=== PATIENT | female | born 1950 | race Caucasian/White ===

== ENCOUNTER 2022-12-24 10:14 | Outpatient (AMB) | payer MEDICARE, BC, SELFPAY ==
[2022-12-24 10:26] VITALS: BP 116/60; PULSE 62; RESP 16; O2SAT 99; BMI 23.0
--- NOTE | 2022-12-24 10:26 | A.OFFVIS_ITS ---
Intake Vital Signs 12/24/22 10:26 Height 5 ft 7 in Weight 147 lb 0.773 oz BMI 23.0 BP 116/60 Blood Pressure Location Lt brachial Position Sitting Respiration 16 Pulse 62 Pulse Source Pulse Oximeter Temp Source Tympanic Pulse Oximetry (%) 99 Oxygen Delivery Method Room Air Intake Visit Reasons: SLE Allergies carbamazepine [From Tegretol] Allergy (Unknown, Unverified 12/24/22 10:29) Unknown phenytoin [From Dilantin] Allergy (Unknown, Unverified 12/24/22 10:29) Unknown Medication List - Last Reconciled 12/24/22 by Esther Chicas RN hydroxychloroquine 200 mg PO DAILY metoprolol succinate ER 25 mg PO DAILY multivitamin 1 tab PO DAILY warfarin 5 mg PO DAILY HPI HPI Comments History of Present Illness Details The patient presents for evaluation of her SLE, antiphospholipid syndrome, and osteoarthritis. I had last seen her about 3 years ago. She has longstanding SLE but has had mostly inactive disease in the last 2 decades. Since then she has seen Dr. Mcdowell a few times. His notes and the cardiology notes are reviewed. She remains on hydroxychloroquine 200 mg daily and warfarin. Occasionally she takes acetaminophen at night. She has some hand deformities but they are not really all that painful. 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 For the past 2 years a so she has been bothered by low back pain. This comes on with prolonged standing and radiates to the anterior thigh region when she walks. She has not seen any swollen joints. She did have some right knee pain in the past but that resolved after a corticosteroid injection. She was hospitalized with some PVCs. Cardiac workup included a stress test and echocardiogram. The echocardiogram showed some mitral regurgitation and a stress test was negative for ischemia. She was recommended to take medication for osteoporosis with alendronate but it caused esophagitis and she only took it about 3 weeks. Further recommendation was given for the use of zoledronic acid but she was worried about side effects so never had it done. [facility] Medical History History of DVT (deep vein thrombosis) Osteoarthritis Osteoporosis SLE (systemic lupus erythematosus related syndrome) Surgical History Hx of cataract extraction S/P foot surgery, left Family History Mother Diabetes Myocardial infarction Father Myocardial infarction Colon cancer Brother Lupus History of Crohn's disease Kidney failure, acute Social History Alcohol intake: current Alcohol intake frequency: holidays/special occasions only Alcohol type: wine Patient Tobacco Use Status: Current someday Tobacco user Review of Systems Const Details: Negative for appetite change, weight change, fever, chills, malaise and fatigue Eyes Details: Negative for vision change, dry eyes,headaches and dizziness ENT Details: Negative for hearing change, tinnitus, oral ulcer, nose bleeds and oral dryness. Card Details: Negative chest pain, edema and syncope Resp Details: Negative for SOB, cough and wheezing GI Details: Negative indigestion/heartburn, nausea, abdominal pain, bowel changes, diarrhea, constipation and bloody stool. Skin/Breast Details: Negative for itching, rash, hives, Raynaud's symptoms, sun sensitivity, and skin cancer Neuro Details: Negative for epilepsy, palsy, stroke, changes in speech, tingling and weakness Dion/Lymph Details: Negative for excessive bruising or bleeding. Physical Exam Vital Signs: Last Vital Signs Pulse 62 12/24/22 10:26 Resp 16 12/24/22 10:26 BP 116/60 12/24/22 10:26 Pulse Ox 99 12/24/22 10:26 Oxygen Delivery Method Room Air 12/24/22 10:26 BMI result Body Mass Index 23.0 APPEARANCE: Patient in no acute distress EYES no redness, pupils equal and reactive to light, eyelids normal EARS: External ear normal, canal clear and tympanic membrane normal. NOSE/SINUS: Airflow through both nares, no nasal discharge, no bleeding THROAT: Oral mucosa moist, no ulcerations NECK: No thyromegaly or masses, no adenopathy, trachea midline. HEART: Regulrar rhythm, S1-S2 heard. Very faint early systolic systolic murmur heard at the apex. No rubs or gallops. LUNG: Clear to percussion and auscultation ABD: Normal bowel sounds, no organomegaly, masses or tenderness. EXTREMITIES: There is some hyperpigmented skin around the medial and anterior aspect of the right lower leg. That leg has no palpable pulse in the dorsalis pedis area. The foot is warm and well perfused however. The legs have no edema and no calf tenderness. The other extremities have normal peripheral pulses. NEURO: Oriented and alert x3. No focal weakness. Reflexes symmetric. Gait normal. SKIN: No active skin lesions. Some hyperpigmented areas of skin on the lower leg suggesting old skin disease. JOINT EXAM:.?? Cervical Spine:.? Full range of motion without pain; no tenderness. Thoracic Spine:.? No scoliosis.? No tenderness on palpation. Lumbar Spine:.? Alignment normal.? Lumbar pain with extremes of range of motion. No tenderness. Chest Wall:.? No tenderness, swelling, increased warmth or erythema. Hands: There is mild bony enlargement with tenderness at the base of the thumbs. There is some swan neck deformity at all the PIP is but none of them are tender. There is no soft tissue swelling. There is some slight bony enlargement without tenderness PIP joints. There is slight thenar atrophy but no sensory loss. Wrists:.? Normal pain-free range of motion without tenderness, swelling, increased warmth or erythema. Elbows:. Normal pain-free range of motion without tenderness, swelling, increased warmth or erythema. Shoulders:.?? Full range of motion without pain. No tenderness, weakness, swelling, increased warmth or erythema. Hips:.? Full range of motion with some mild lumbar pain with extremes of range of motion. No groin pain with range of motion. Hip bursa:.? No tenderness. Knees:.?? Normal pain-free range of motion with mild patellofemoral crepitus but no effusion, tenderness, swelling, increased warmth or erythema.? Ankles:.? Right: Mild pain with extremes of range of motion with some minimal medial tenderness. No swelling. Left: Normal pain-free range of motion with some slight valgus deformity but no the tenderness, swelling, increased warmth or erythema. Feet:.? She has pes planus deformity. There is some mild 1st MTP bony enlargement without tenderness. This is enlargement more prominent on the left. There is 5th MTP which is more prominent on the left. It is not tender. The 2nd and 3rd toes have some cock-up deformities. No tenderness. Tender points:.? No tenderness to digital palpation at the occiput, trapezius, second rib, lateral epicondyle, knees, greater trochanter and gluteal area bila terally. ? Results Reviewed Results Reviewed: [facility] MED[facility] Imaging Result Report Patient: Annabelle Harris Date of Service: 04/22/20 ? ? Patient Gender: Female Ordering Provider: Latrell Talbert : 1950 ? ? ? Final DXA BONE DENSITY STUDY 1+ SITS AXIAL SKEL Exam Date: 04/22/2020 11:45 AM Ordering Diagnosis: Osteoporosis, unspecified osteoporosis type, unspecified pathological fracture presence ? BONE DENSITY SCAN (DEXA): ? FINDINGS: ? Lumbar Spine T-score is -2.4. (SD relative to 20-29 y/o adult) Z-score is -0.4. (SD relative to age matched peers) This is considered osteopenia by WHO criteria. ? Left Hip T-score is -3.0. Z-score is -1.2. This is considered osteoporosis by WHO criteria. ? Comparison exam(s): As recent as 02/21/2015 and as far back as 01/23/2004. No statistically significant change in lumbar spine and left hip bone mineral density compared wi th the previous and baseline exams. ? IMPRESSION IMPRESSION: ? Osteoporosis by WHO criteria. ? FRAX scores not able to be calculated. ? The [facility] Department of Internal Medicine recommends using National Osteoporosis Foundation (NOF) guidelines in treatment decisions related to osteoporosis. NOF guidelines suggest considering treatment for postmenopausal women and men aged 50 or older presenting with the following: ? History of hip or vertebral fracture. T-score = -2.5 (DXA) at the femoral neck, total hip, or spine, after appropriate evaluation to exclude secondary causes. Low bone mass (T-score between -1.0 and -2.5 at the femoral neck or spine) AND a 10-year probability of a hip fracture = 3% OR a 10-year probability of a major osteoporosis-related fracture = 20% based on the [place]-adapted WHO algorithm ? Please note that all treatment decisions require clinical judgment and consideration of individual patient factors, including patient preferences, co-morbidities, previous drug use, risk factors not captured in the FRAX model (e.g., frailty, falls, vitamin D deficiency, increased bone turnover, interval significant decline in bone density) and possi ble under- or over-estimation of fracture risk by FRAX. ? Optional alternative screening schedule based on jose Morris., [facility] June 25, 2011 for patients with osteopenia (based on hip BMD T-score) is as follows: * advanced osteopenia (T scores -2.00 to -2.49), BMD testing every year * moderate osteopenia (T scores -1.50 to -1.99), BMD testing every 5 years mild osteopenia or normal BMD (T scores -1.50 and higher), BMD testing every 15 years ? ? ? Reading Radiologist: Electronically signed by: Annamaria Douglas MD on Assessment & Plan Assessment & Plan (1) Lupus anticoagulant disorder: Comment: claudication in right calf due to thrombosis. 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 She also has some osteoarthritis in a few joints in the hands. She had an arterial occlusion years ago in the right leg. Since then she has been on anticoagulants for lupus anticoagulant syndrome without any further occlusive disease. I think she should stay on the Coumadin. The most problematic area right now seems to be low back pain with radiation to the legs consistent with lumbar osteoarthritis. The hip motion seems relatively well- preserved so I do not think hip joint OA is the primary process. We will check x-rays of the LS spine. She might benefit from physical therapy or referral to pain management. I will check some markers of lupus activity, inflammatory activity organ function and CBC. I would agree that she needs to be treated for osteoporosis. She again really is reluctant because of the worry about side effects. I gave her some written information on zoledronic acid to review. She will get back to me if she wants to proceed with that treatment. Otherwise a return visit at 3 months seems reasonable. Review of records from the hospital and Rheumatology office, today's exam, and discussion of treatment options took 54 minutes.. Orders: Orders XR lumbar spine 2-3V Today M54.50 - Low back pain, unspecified Comprehensive Met. Panel Today M32.9 - Systemic lupus erythematosus, unspecified C Reactive Protein Today M32.9 - Systemic lupus erythematosus, unspecified Protein Creatinine Ratio, Ur Today M32.9 - Systemic lupus erythematosus, unspecified Complete Blood Count Auto Diff Today M32.9 - Systemic lupus erythematosus, unspecified Erythrocyte Sedimentation Rate Today M32.9 - Systemic lupus erythematosus, unspecified Complement C3 Today M32.9 - Systemic lupus erythematosus, unspecified Complement C4 Today M32.9 - Systemic lupus erythematosus, unspecified Anti DNA DS Antibody Today M32.9 - Systemic lupus erythematosus, unspecified Coding Level of Care Code New Pt Level 4 (95070) Diagnoses Lupus anticoagulant disorder D68.62 Osteoporosis M81.0 Long-term use of hydroxychloroquine Z79.899 Low back pain M54.50 SLE (systemic lupus erythematosus related syndrome) M32.9
== END 2022-12-24 11:20 | disposition home or self-care (01) ==
PROVIDERS: PCP Internal Medicine; Visit Provider Internal Medicine Rheumatology
DX: D68.62 Lupus anticoagulant syndrome (principal); M81.0 Age-related osteoporosis without current pathological fracture; Z79.899 Other long term (current) drug therapy; M54.50 Low back pain, unspecified; M32.9 Systemic lupus erythematosus, unspecified
CPT/HCPCS: 99204

== ENCOUNTER 2022-12-24 10:14 | Outpatient (REF) | payer MEDICARE, BC, SELFPAY ==
--- NOTE | ~2022-12-24 | XR_ITS ---
EXAMINATION: XR LUMBOSACRAL SPINE CLINICAL INFORMATION: Low back pain. COMPARISON: None available. TECHNIQUE: Three views of the lumbosacral spine. FINDINGS: There are 5 nonrib-bearing lumbar vertebra. There is osteopenia of visualized bones. No acute fracture, spondylolisthesis, or spondylolysis is identified. There is significant narrowing of the L5-S1 disc space with marginal sclerosis and spurring. There is facet arthropathy present most prominent right side L3-L4. No destructive bony lesion is appreciated. There is calcification of a nonaneurysmal abdominal aorta. XR/XR lumbar spine 2-3V IMPRESSION: Diffuse osteopenia. No acute fracture, spondylolisthesis, or spondylolysis. Lumbar spondylosis most prominent at the L5-S1 and L3-L4 levels.
== END 2022-12-24 10:15 | disposition home or self-care (01) ==
LOC: HO.XRAY 10:14
PROVIDERS: PCP Internal Medicine; Visit Provider Internal Medicine Rheumatology
DX: D68.62 Lupus anticoagulant syndrome (principal); M81.0 Age-related osteoporosis without current pathological fracture; M54.50 Low back pain, unspecified; M32.9 Systemic lupus erythematosus, unspecified; Z79.899 Other long term (current) drug therapy
CPT/HCPCS: 36415; 72100; 80053; 84156; 85025; 85652; 86140; 86160; 86225; 99202

== ENCOUNTER 2022-12-24 12:08 | Outpatient (REF) | payer MEDICARE, BC, SELFPAY ==
[2022-12-24 13:28] LABS: MANUAL DIFF FLAG NO
[2022-12-24 13:55] LABS: Basophils Absolute Auto 0.1 X10*3/uL (0.0-0.2); Basophils Percent Auto 1.1 % (0-2); Eosinophils Absolute Auto 0.1 X10*3/uL (0.0-0.4); Eosinophils Percent Auto 1.3 % (0-4); Hematocrit 39.2 % (37.0-47.0); Hemoglobin 12.9 g/dl (12.0-16.0); Imm Gran Abs Auto 0.01 X10*3/uL (0.00-0.03); Imm Gran Pct Auto 0.2 % (0.0-0.4); Lymphocytes Absolute Auto 2.3 X10*3/uL (1.2-4.9); Lymphocytes Percent Auto 37.6 % (20-40); Mean Corpuscular HGB Conc 32.9 g/dl (31.0-35.0); Mean Corpuscular Hemoglobin 31.4 pg (27.0-33.0); Mean Corpuscular Volume 95.4 fL (80.0-98.0); Mean Platelet Volume 11.4 fL (9.4-12.3); Monocytes Absolute Auto 0.4 X10*3/uL (0.1-1.2); Monocytes Percent Auto 5.9 % (2-11); Neutrophils Absolute Auto 3.4 x10*3/uL (2.0-8.3); Neutrophils Percent Auto 53.9 % (45-73); Platelet Count 286 X10*3/uL (160-400); Red Blood Count 4.11 X10*6/uL (4.20-5.50); Red Cell Distribution Width 13.2 % (11.0-16.0); White Blood Count 6.2 X10*3/uL (4.8-10.8)
[2022-12-24 14:32] LABS: Total Protein Urine Random < 7 mg/dL (<12)
[2022-12-24 14:36] LABS: Erythrocyte Sedimentation Rate 19 MM/HR (0-20)
[2022-12-24 14:39] LABS: Alanine Aminotransferase 12 U/L (0-31); Alkaline Phosphatase 86 U/L (39-117); Anion Gap 13 (12-20); Aspartate Amino Transferase 18 U/L (5-31); Bilirubin Total 0.4 mg/dL (0.0-1.0); Blood Urea Nitrogen 18 mg/dL (9-16); C Reactive Protein 0.24 mg/dL (< or = 0.50); Carbon Dioxide 30 mmol/L (22-29); Chloride 103 mmol/L (96-108); Estimated Glomerular Filt Rate > 60; Glucose Random 76 mg/dL (60-115); Potassium 4.3 mmol/L (3.3-5.1); Sodium 142 mmol/L (135-145); Total Protein 7.3 g/dL (6.5-8.0)
[2022-12-28 12:29] LABS: Complement C3 102 mg/dL (83-193)
[2022-12-29 05:38] LABS: Anti DNA DS Antibody 17 IU/mL
== END 2022-12-24 12:09 | disposition home or self-care (01) ==
LOC: HO.10HDL 12:08
PROVIDERS: Visit Provider Internal Medicine Rheumatology
DX: Z13.89 Encounter for screening for other disorder (principal)
CPT/HCPCS: 36415; 80053; 84156; 85025; 85652; 86140; 86160; 86225

== ENCOUNTER 2023-03-25 10:27 | Outpatient (AMB) | payer MEDICARE, BC, SELFPAY ==
--- NOTE | 2023-03-25 10:32 | A.OFFVIS_ITS ---
Intake Vital Signs 03/25/23 10:34 Height 5 ft 7 in Weight 148 lb 5.938 oz BMI 23.2 BP 150/82 H Blood Pressure Location Lt brachial Position Sitting Pulse 78 Pulse Source Pulse Oximeter Temp 97.2 F Temp Source Skin Pulse Oximetry (%) 99 Oxygen Delivery Method Room Air Intake Visit Reasons: SLE Intake Note: Patient presents today to follow up on SLE. 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 She remains on hydroxychloroquine 200 mg daily and warfarin. She has not had any recent blood clots. She gets occasional pain in the right foot, lower back, in the hands. She does have a hand surgery appointment; she has noted some thickening in the palm of the right hand. Occasionally there is pain at the right 3rd PIP but most of the time the hands are not painful. She remains on metoprolol for palpitations. There have been no recent problems with sun sensitivity, skin rashes, oral ulcers, chest pain or abdominal pain. We had a discussion last time about treatment of her osteoporosis with IV zoledronic acid but she still is not wishing to proceed with that. [facility], [facility] Medical History History of DVT (deep vein thrombosis) Osteoarthritis Osteoporosis SLE (systemic lupus erythematosus related syndrome) Surgical History S/P foot surgery, left Hx of cataract extraction Family History Mother Diabetes Myocardial infarction Father Myocardial infarction Colon cancer Brother Lupus History of Crohn's disease Kidney failure, acute Social History Alcohol intake: current Alcohol intake frequency: holidays/special occasions only Alcohol type: wine Patient Tobacco Use Status: Current someday Tobacco user Review of Systems Const Details: Some time she gets fatigued when she is active caring for her grandchildren, mostly driving them to 5th different events. Negative for appetite change, weight change, fever, chills, malaise Eyes Details: Negative for vision change, dry eyes,headaches and dizziness ENT Details: She recently had some dental work and things checked out okay. Negative for hearing change, tinnitus, oral ulcer, nose bleeds and oral dryness. Card Details: Occasional palpitations, thought to be PVCs, helped with metoprolol Negative chest pain, edema and syncope Resp Details: Negative for SOB, cough and wheezing GI Details: Negative indigestion/heartburn, nausea, abdominal pain, bowel changes, diarrhea, constipation and bloody stool. Details: Negative for dysuria, hematuria, nocturia, decreased force/flow and genital discharge Skin/Breast Details: Negative for itching, rash, hives, Raynaud's symptoms, sun sensitivity, and skin cancer Neuro Details: Negative for epilepsy, palsy, stroke, changes in speech, tingling and weakness Psych Details: Negative for anxiety, depression and stress Endo Details: Negative for polyuria and polydypsia Dion/Lymph Details: Negative for excessive bruising or bleeding. Physical Exam Vital Signs: Last Vital Signs Temp 97.2 F 03/25/23 10:34 Pulse 78 03/25/23 10:34 BP 150/82 H 03/25/23 10:34 Pulse Ox 99 03/25/23 10:34 Oxygen Delivery Method Room Air 03/25/23 10:34 BMI result Body Mass Index 23.2 APPEARANCE: Patient in no acute distress EYES no redness, pupils equal and reactive to light, eyelids normal EARS: External ear normal, canal clear and tympanic membrane normal. NOSE/SINUS: Airflow through both nares, no nasal discharge, no bleeding THROAT: Oral mucosa moist, no ulcerations NECK: No thyromegaly or masses, no adenopathy, trachea midline. HEART: Regulrar rhythm, S1-S2 heard. Very faint early systolic systolic murmur heard at the apex. No rubs or gallops. LUNG: Clear to percussion and auscultation ABD: Normal bowel sounds, no organomegaly, masses or tenderness. EXTREMITIES: There is some hyperpigmented skin around the medial and anterior aspect of the right lower leg. That leg has no palpable pulse in the dorsalis pedis area. The foot is warm and well perfused however. The legs have no edema and no calf tenderness. The other extremities have normal peripheral pulses. NEURO: Oriented and alert x3. No focal weakness. Reflexes symmetric. Gait normal. SKIN: No active skin lesions. Some hyperpigmented areas of skin on the lower leg suggesting old skin disease. JOINT EXAM:.?? Cervical Spine:.? Full range of motion without pain; no tenderness. Thoracic Spine:.? No scoliosis.? No tenderness on palpation. Lumbar Spine:.? Alignment normal.? Lumbar pain with extremes of range of motion. No tenderness. Chest Wall:.? No tenderness, swelling, increased warmth or erythema. Hands: There is mild bony enlargement with tenderness at the base of the thumbs. There is some swan neck deformity at all the PIP;s and the IP joints. There is some bony enlargement at all of the IP joints. The right 3rd PIP has some mild tenderness and seems to have some degree of instability. She does have a thickened structure in the palm of the right hand suggestive of a cord from Dupuytren's disease. She does not have any triggering in that tendon sheath. There is slight thenar atrophy but no sensory loss. Wrists:.? Normal pain-free range of motion without tenderness, swelling, increased warmth or erythema. Elbows:. Normal pain-free range of motion without tenderness, swelling, increased warmth or erythema. Shoulders:.?? Full range of motion without pain. No tenderness, weakness, swelling, increased warmth or erythema. Hips:.? Full range of motion with some mild lumbar pain with extremes of range of motion. No groin pain with range of motion. Hip bursa:.? No tenderness. Knees:.?? Normal pain-free range of motion with mild patellofemoral crepitus but no effusion, tenderness, swelling, increased warmth or erythema.? Ankles:.? Right: Mild pain with extremes of range of motion with some minimal medial tenderness. Slight valgus deformity. No swelling. Left: Normal pain- free range of motion with some slight valgus deformity but no the tenderness, swelling, increased warmth or erythema. Feet:.? She has pes planus deformity. There is some mild 1st MTP bony enlargement without tenderness. This is enlargement more prominent on the left. There is 5th MTP which is more prominent on the left. It is not tender. The 2nd and 3rd toes have some cock-up deformities. No tenderness. Tender points:.? No tenderness to digital palpation at the occiput, trapezius, second rib, lateral epicondyle, knees, greater trochanter and gluteal area bilaterally. Results Reviewed Results Reviewed: Recent labs from [place]: Total cholesterol 190, triglyceride 111, HDL 80, LDL 88, TC- HDLC ratio 2.4 Assessment & Plan Assessment & Plan (1) Osteoporosis: Code(s): M81.0 - Age-related osteoporosis without current pathological fracture (2) Lupus anticoagulant disorder: Comment: claudication in right calf due to thrombosis. 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 She is on a low dose of hydroxychloroquine and I think that can be continued in light of the recent eye exam that was normal. She should stay on the warfarin as a preventive agent for future thromboses from the anti-phospholipid syndrome. She might be a candidate for cholesterol-lowering drugs but in light of her very favorable cholesterol profile she is not interested for now. There are some underlying findings of osteoarthritis in the hands. I think the finding in the palm is a early Dupuytren's in I do not think she really wants to have anything done about it but a hand pain evaluation seems reasonable. We will check some inflammatory markers, urine protein, CBC and chemistries. Follow-up in 6 months. Orders: Orders Anti DNA DS Antibody Today M32.9 - Systemic lupus erythematosus, unspecified Complement C4 Today M32.9 - Systemic lupus erythematosus, unspecified Complete Blood Count Auto Diff Today M32.9 - Systemic lupus erythematosus, unspecified Creatinine Today M32.9 - Systemic lupus erythematosus, unspecified Erythrocyte Sedimentation Rate Today M32.9 - Systemic lupus erythematosus, unspecified Complement C3 Today M32.9 - Systemic lupus erythematosus, unspecified Protein Creatinine Ratio, Ur Today M32.9 - Systemic lupus erythematosus, unspecified C Reactive Protein Today M32.9 - Systemic lupus erythematosus, unspecified Coding Level of Care Code Est Pt Level 3 (32527) Diagnoses Osteoporosis M81.0 Lupus anticoagulant disorder D68.62 Long-term use of hydroxychloroquine Z79.899 Osteoarthritis of hands, bilateral M19.041; M19.042 SLE (systemic lupus erythematosus related syndrome) M32.9
[2023-03-25 10:34] VITALS: BP 150/82; PULSE 78; TEMP 36.2; O2SAT 99; BMI 23.2
== END 2023-03-25 11:26 | disposition home or self-care (01) ==
PROVIDERS: PCP Internal Medicine; Visit Provider Internal Medicine Rheumatology
DX: M81.0 Age-related osteoporosis without current pathological fracture (principal); D68.62 Lupus anticoagulant syndrome; Z79.899 Other long term (current) drug therapy; M19.041 Primary osteoarthritis, right hand; M19.042 Primary osteoarthritis, left hand; M32.9 Systemic lupus erythematosus, unspecified
CPT/HCPCS: 99213

== ENCOUNTER → 2023-03-25 10:27 | Outpatient (BNVA) | payer MEDICARE, BC, SELFPAY | PROVIDERS: PCP Internal Medicine; Visit Provider Internal Medicine Rheumatology | DX: M32.9 Systemic lupus erythematosus, unspecified (principal); D68.62 Lupus anticoagulant syndrome; M19.041 Primary osteoarthritis, right hand; M19.042 Primary osteoarthritis, left hand; M81.0 Age-related osteoporosis without current pathological fracture; Z79.899 Other long term (current) drug therapy | CPT/HCPCS: 36415; 82565; 82570; 84156; 85025; 85652; 86140; 86160; 86225; 99212 ==

== ENCOUNTER 2023-03-25 11:30 | Outpatient (REF) | payer MEDICARE, BC, SELFPAY ==
[2023-03-25 13:11] LABS: MANUAL DIFF FLAG NO
[2023-03-25 13:40] LABS: Basophils Percent Auto 0.6 % (0-2); Eosinophils Absolute Auto 0.1 X10*3/uL (0.0-0.4); Eosinophils Percent Auto 1.4 % (0-4); Hematocrit 38.8 % (37.0-47.0); Hemoglobin 12.9 g/dl (12.0-16.0); Imm Gran Abs Auto 0.02 X10*3/uL (0.00-0.03); Imm Gran Pct Auto 0.3 % (0.0-0.4); Lymphocytes Absolute Auto 2.1 X10*3/uL (1.2-4.9); Lymphocytes Percent Auto 32.4 % (20-40); Mean Corpuscular HGB Conc 33.2 g/dl (31.0-35.0); Mean Corpuscular Hemoglobin 31.1 pg (27.0-33.0); Mean Corpuscular Volume 93.5 fL (80.0-98.0); Mean Platelet Volume 11.6 fL (9.4-12.3); Monocytes Absolute Auto 0.3 X10*3/uL (0.1-1.2); Monocytes Percent Auto 4.5 % (2-11); Neutrophils Absolute Auto 3.9 x10*3/uL (2.0-8.3); Neutrophils Percent Auto 60.8 % (45-73); Platelet Count 283 X10*3/uL (160-400); Red Blood Count 4.15 X10*6/uL (4.20-5.50); Red Cell Distribution Width 13.8 % (11.0-16.0); White Blood Count 6.4 X10*3/uL (4.8-10.8)
[2023-03-25 14:10] LABS: C Reactive Protein 0.21 mg/dL (< or = 0.50); Estimated Glomerular Filt Rate > 60
[2023-03-25 14:17] LABS: Erythrocyte Sedimentation Rate 18 MM/HR (0-20)
[2023-03-25 15:04] LABS: Creatinine Urine 26.99 mg/dL; Total Protein Urine Random < 7 mg/dL (<12)
[2023-03-26 18:32] LABS: Anti DNA DS Antibody 16 IU/mL
[2023-03-26 20:53] LABS: Complement C3 105 mg/dL (83-193)
== END 2023-03-25 11:31 | disposition home or self-care (01) ==
LOC: HO.10HDL 11:30
PROVIDERS: Visit Provider Internal Medicine Rheumatology
DX: Z13.89 Encounter for screening for other disorder (principal)
CPT/HCPCS: 36415; 82565; 82570; 84156; 85025; 85652; 86140; 86160; 86225

== ENCOUNTER 2023-10-20 10:26 | Outpatient (REF) | payer MEDICARE, BC, SELFPAY ==
--- NOTE | ~2023-10-20 | XR_ITS ---
EXAMINATION: XR RIBS, BILATERAL, WITH PA CHEST CLINICAL INFORMATION: Posterior chest pain of one week's duration; question fracture. COMPARISON: Lumbar spine radiographs dated 12/24/2022. TECHNIQUE: 3 views of the bilateral ribs were obtained, together with a PA view of the chest. FINDINGS: Lungs are clear. No consolidation, pneumothorax, or pleural effusion. The cardiomediastinal silhouette and pulmonary vasculature are normal. A mildly displaced fracture is seen of the anterior right ninth rib. No further fracture is identified. XR/XR ribs BI min 4V w CXR1V IMPRESSION: A mildly displaced fracture seen of the anterior margin of the right ninth rib. No pleural effusion or pneumothorax is seen.
== END 2023-10-20 10:27 | disposition home or self-care (01) ==
LOC: HO.LAB 10:26
PROVIDERS: PCP Internal Medicine; Visit Provider Student in an Organized Health Care Education/Training Program
DX: M32.9 Systemic lupus erythematosus, unspecified (principal); M81.0 Age-related osteoporosis without current pathological fracture; R07.9 Chest pain, unspecified; D68.62 Lupus anticoagulant syndrome; I95.1 Orthostatic hypotension; Z79.01 Long term (current) use of anticoagulants; Z79.899 Other long term (current) drug therapy
CPT/HCPCS: 71111; 99212

== ENCOUNTER 2023-10-20 10:26 | Outpatient (AMB) | payer MEDICARE, BC, SELFPAY ==
--- NOTE | 2023-10-20 10:31 | A.OFFVIS_ITS ---
Vital Signs 10/20/23 10:43 Height 5 ft 7 in Weight 147 lb 7.828 oz BMI 23.1 BP 134/62 Blood Pressure Location Rt brachial Position Sitting Pulse 62 Pulse Source Pulse Oximeter Pulse Oximetry (%) 98 Oxygen Delivery Method Room Air Intake Visit Reasons: sle wit dr Murrieta Intake Note: Patient last seen by Dr Birch 03/25/23 presents today for follow up and test results. Reports right sided rib pain x1 week. Thinks she over stretched and pulled a muscle. Energy Efficiency Specialist Required: No Accompanied by: Self / Same As Patient Allergies carbamazepine [From Tegretol] Allergy (Unknown, Unverified 10/20/23 10:47) Unknown phenytoin [From Dilantin] Allergy (Unknown, Unverified 10/20/23 10:47) Unknown Medication List - Last Reconciled 10/20/23 by Luis Murrieta MD amlodipine 5 mg PO DAILY hydroxychloroquine 200 mg PO DAILY metoprolol succinate ER 25 mg PO DAILY multivitamin 1 tab PO DAILY warfarin 5mg 3x week, 2.5mg the rest of the days HPI Comments Details: This is a 73-year-old female with SLE and lupus anticoagulant syndrome on warfarin who presents for follow-up. She remains on hydroxychloroquine 200 mg daily and warfarin 5 mg daily. States that she is doing about the same overall. She continues to have intermittent body aches as well as fatigue. This is chronic and has been ongoing for many years. She stated that she believes she pulled a muscle in the right side of her back/side. Not believe she heard a crack or broke any bones. She states it that since she was started on amlodipine she has been having symptoms suggestive of postural hypotension. Three months ago when in [place] she thinks that she blacked out and fell, hit her face. She has known right knee osteoarthritis and uses a sleeve which does seem to help. She recently started occupational therapy for her hands and fitted with some finger splints which she feels is helping prevent progression of some of her deformities Most recent history by Dr. Birch 03/2023: The patient returns for evaluation of her SLE and history of antiphospholipid syndrome. She remains on hydroxychloroquine 200 mg daily and warfarin. She has not had any recent blood clots. She gets occasional pain in the right foot, lower back, in the hands. She does have a hand surgery appointment; she has noted some thickening in the palm of the right hand. Occasionally there is pain at the right 3rd PIP but most of the time the hands are not painful. She remains on metoprolol for palpitations. There have been no recent problems with sun sensitivity, skin rashes, oral ulcers, chest pain or abdominal pain. We had a discussion last time about treatment of her osteoporosis with IV zoledronic acid but she still is not wishing to proceed with that. [facility] Medical History SLE (systemic lupus erythematosus related syndrome) Osteoporosis History of DVT (deep vein thrombosis) Osteoarthritis Surgical History S/P foot surgery, left Hx of cataract extraction Family History Mother Diabetes Myocardial infarction Father Myocardial infarction Colon cancer Brother Lupus History of Crohn's disease Kidney failure, acute Social History Alcohol intake: current Alcohol intake frequency: holidays/special occasions only Alcohol type: wine Patient Tobacco Use Status: Current someday Tobacco user Current occupational status: previously employed 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 Review of Systems Const Reports fatigue Musc Reports myalgias, Reports arthralgias and Denies joint swelling Endo Reports fatigue Physical Exam Vital Signs: Last Vital Signs Pulse 62 10/20/23 10:43 BP 134/62 10/20/23 10:43 Pulse Ox 98 10/20/23 10:43 Oxygen Delivery Method Room Air 10/20/23 10:43 BMI result Body Mass Index 23.1 Const General: cooperative, healthy appearing and comfortable Orientation/consciousness: patient oriented x3 Limitations: no limitations HEENT Head: Yes normocephalic and Yes atraumatic Mouth: moist mucous membranes Chest Other: There is point tenderness on the ribs on the right Resp Effort & Inspection: normal respiratory effort and able to speak in complete sentences Auscultation: clear to auscultation bilaterally Cardio Rate: regular rate Neuro General: patient oriented x3 Extrem Other: Right knee wrapped in a sleeve Normal range of motion of knees without tenderness Significant chronic changes of both hands sleep records arthropathy with some enlargement of the MCPs, multiple swan-neck deformities. Ulnar deviation at the MCPs. Multiple reducible subluxations but there is no active synovitis Normal range of motion of elbows and shoulders Normal nailfold capillaroscopy Results Reviewed Results Reviewed: ORTHO X-RAY EXAM OF HAND, 3+ VIEWS Exam Date: 09/07/2023 10:45 AM Ordering Diagnosis: Bilateral hand pain ? AP, lateral, and oblique of both hands were obtained on 09/07/2023. There are no prior comparative views. Patient has notable osteopenia. At the radiocarpal joint she has some sclerosis at the radiocarpal joint and distal radial ulnar joint consistent with rheumatoid-like appearance. There is sclerosis at the midcarpal joint. There is subchondral cyst formation and loss of joint space. She has notable arthritis at the basal joint with osteophyte formation sclerosis and joint space narrowing. She has milder arthritis at the thumb MP and IP joints. She has some subchondral cyst formation and joint space narrowing asymmetric wear of the joints and sclerosis at the PIP joints across the board as well as at the DIP joints. There is some ulnar deviation of the digits at the PIP level particular the long and small fingers. On the obliques and on the lateral view you can better appreciate the swan-neck postures of the fingers. On the patient's left side she has very similar changes although not quite as advanced at the wrist level. The basal joint wall arthritic again is not quite as advanced as the right thumb. The MP joints show a little bit more narrowing. The small finger MP is deviated ulnarly a bit more than the others. There is again the asymmetric wear, sclerosis, subchondral cyst formation of the PIP and DIP joints across the board. There is notable deviation of the long finger PIP and small finger PIP along with the index DIP. On the oblique and lateral views you can better appreciate the swan-neck posture of the fingers. ? 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 This is her 1st visit with me. She used to follow-up with Dr. Birch. Patient seems stable from lupus standpoint but will need to check lupus activity labs. Continue hydroxychloroquine 200 mg daily Follow-up in 4 months (2) Lupus anticoagulant disorder: Comment: claudication in right calf due to thrombosis. On chronic warfarin Code(s): D68.62 - Lupus anticoagulant syndrome Category: Medical Plan: Remains on warfarin. Will check antiphospholipid antibodies (3) Long-term use of hydroxychloroquine: Comment: Eye exam OK:02/2023 Code(s): Z79.899 - Other adjunct faculty for medical terminology (current) drug therapy Category: Medical Plan: Patient believes she was on hydroxychloroquine for approximately 20 years in total. Most recent eye exam 02/2023 was unremarkable. Continue to follow-up regularly with director of occupational health (4) Osteoporosis: Comment: DEXA 04/2020 L-spine T-score -2.4 Left hip T-score -3.0 Code(s): M81.0 - Age-related osteoporosis without current pathological fracture Category: Medical Qualifiers: Osteoporosis type: age-related Presence of current pathological fracture: without current pathological fracture Qualified Code(s): M81.0 - Age- related osteoporosis without current pathological fracture Plan: Patient was on prednisone for at least 20 years. DEXA in 2019 showed osteoporosis. Patient could not tolerate alendronate due to significant throat and GI irritation. Discussed the need for Reclast especially with her recent falls. She will think about it (5) Postural hypotension: Code(s): I95.1 - Orthostatic hypotension Category: Medical Plan: Patient has been having symptoms suggestive of postural hypotension since she started amlodipine. Advised with with patient that she needs to discuss it with her PCP especially given her history of osteoporosis and being on warfarin Plan I spent 49 minutes reviewing patient's chart, evaluating patient, ordering diagnostic workup, counseling patient and documenting in the chart Orders: Orders Complete Blood Count Auto Diff Today M32.9 - Systemic lupus erythematosus, unspecified Anti DNA DS Antibody Today M32.9 - Systemic lupus erythematosus, unspecified Complement C4 Today M32.9 - Systemic lupus erythematosus, unspecified Protein Creatinine Ratio, Ur Today M32.9 - Systemic lupus erythematosus, unspecified UA w Microscopic Today M32.9 - Systemic lupus erythematosus, unspecified Immunofixation Pnl, Serum Today M32.9 - Systemic lupus erythematosus, unspecified Protein Electrophoresis, Serum Today M32.9 - Systemic lupus erythematosus, unspecified Parathyroid Hormone Intact Today M81.0 - Age-related osteoporosis without current pathological fracture Phosphorus Today M81.0 - Age-related osteoporosis without current pathological fracture Beta-2 Glycoprotein Antibody Today D68.62 - Lupus anticoagulant syndrome Cardiolipin Antibodies Today D68.62 - Lupus anticoagulant syndrome Lupus Anticoagulant Panel Today D68.62 - Lupus anticoagulant syndrome XR ribs BI min 4V w CXR1V Today R07.9 - Chest pain, unspecified Comprehensive Met. Panel Today M32.9 - Systemic lupus erythematosus, unspecified C Reactive Protein Today M32.9 - Systemic lupus erythematosus, unspecified Erythrocyte Sedimentation Rate Today M32.9 - Systemic lupus erythematosus, unspecified Anti Extractable Nuclear Ag Today M32.9 - Systemic lupus erythematosus, unspecified Complement C3 Today M32.9 - Systemic lupus erythematosus, unspecified DNA Double Stranded-Crithidia Today M32.9 - Systemic lupus erythematosus, unspecified Sjogren's Antibodies Today M32.9 - Systemic lupus erythematosus, unspecified Hepatitis A,B,C Profile Today Z11.59 - Encounter for screening for other viral diseases Collagen Type I C-Telopeptide Today M81.0 - Age-related osteoporosis without current pathological fracture TSH reflex Free T4 Today M81.0 - Age-related osteoporosis without current pathological fracture Vitamin D 25-OH (D2 and D3) Today Z13.21 - Encounter for screening for nutritional disorder Coding Level of Care Code Est Pt Level 5 (83275) Diagnoses SLE (systemic lupus erythematosus related syndrome) M32.9 Lupus anticoagulant disorder D68.62 Long-term use of hydroxychloroquine Z79.899 Age-related osteoporosis without current pathological fracture M81.0 Osteoporosis type: age-related Presence of current pathological fracture: without current pathological fracture Postural hypotension I95.1
[2023-10-20 10:43] VITALS: BP 134/62; PULSE 62; O2SAT 98; BMI 23.1
== END 2023-10-20 11:23 | disposition home or self-care (01) ==
PROVIDERS: PCP Internal Medicine; Visit Provider Student in an Organized Health Care Education/Training Program
DX: M32.9 Systemic lupus erythematosus, unspecified (principal); D68.62 Lupus anticoagulant syndrome; Z79.899 Other long term (current) drug therapy; M81.0 Age-related osteoporosis without current pathological fracture; I95.1 Orthostatic hypotension
CPT/HCPCS: 99215

== ENCOUNTER 2023-10-22 08:48 | Outpatient (REF) | payer MEDICARE, BC, SELFPAY ==
[2023-10-22 09:12] LABS: MANUAL DIFF FLAG NO
[2023-10-22 09:46] LABS: Basophils Absolute Auto 0.1 X10*3/uL (0.0-0.2); Eosinophils Absolute Auto 0.1 X10*3/uL (0.0-0.4); Eosinophils Percent Auto 2.4 % (0-4); Hematocrit 37.6 % (37.0-47.0); Hemoglobin 12.5 g/dl (12.0-16.0); Imm Gran Abs Auto 0.01 X10*3/uL (0.00-0.03); Imm Gran Pct Auto 0.2 % (0.0-0.4); Lymphocytes Absolute Auto 1.6 X10*3/uL (1.2-4.9); Lymphocytes Percent Auto 32.5 % (20-40); Mean Corpuscular HGB Conc 33.2 g/dl (31.0-35.0); Mean Corpuscular Hemoglobin 31.8 pg (27.0-33.0); Mean Corpuscular Volume 95.7 fL (80.0-98.0); Mean Platelet Volume 11.5 fL (9.4-12.3); Monocytes Absolute Auto 0.3 X10*3/uL (0.1-1.2); Monocytes Percent Auto 5.2 % (2-11); Neutrophils Percent Auto 58.7 % (45-73); Platelet Count 255 X10*3/uL (160-400); Red Blood Count 3.93 X10*6/uL (4.20-5.50); Red Cell Distribution Width 12.9 % (11.0-16.0)
[2023-10-22 09:55] LABS: Appearance Urine Clear; Color Urine Yellow; Glucose Urine UA Negative (Negative); Leukocyte Esterase Urine Trace (Negative); Nitrite Urine Negative (Negative); PH 6.5 (5.0-9.0); UMIC TRIGGER UA YES; Urine Blood Small (1+) (Negative); Urine Ketones Negative (Negative); Urine Protein Negative (Neg-Trace)
[2023-10-22 10:00] LABS: Bacteria Urine None Seen (None Seen); Hyaline Casts Urine 0-2 /LPF (0-2); Squamous Epithelial Cell Urine 0-2 /HPF (0-2); WBC Urine 0-5 /HPF (0-5)
[2023-10-22 10:29] LABS: Erythrocyte Sedimentation Rate 17 MM/HR (0-20)
[2023-10-22 10:30] LABS: Creatinine Urine 102.59 mg/dL; Protein/Creatinine Ratio, Ur 0.09 (<0.2); Total Protein Urine Random 9 mg/dL (<12)
[2023-10-22 10:34] LABS: Parathyroid Hormone Intact 58.4 pg/mL (8.7-77.1)
[2023-10-22 10:36] LABS: Alanine Aminotransferase 10 U/L (0-31); Albumin Level 4.1 g/dL (3.5-5.0); Alkaline Phosphatase 88 U/L (39-117); Anion Gap 13 (12-20); Aspartate Amino Transferase 18 U/L (5-31); Bilirubin Total 0.4 mg/dL (0.0-1.0); Blood Urea Nitrogen 16 mg/dL (9-16); C Reactive Protein 0.17 mg/dL (< or = 0.50); Calcium 9.6 mg/dL (8.4-10.2); Carbon Dioxide 27 mmol/L (22-29); Chloride 106 mmol/L (96-108); Estimated Glomerular Filt Rate > 60; Glucose Random 81 mg/dL (60-115); Phosphorus 3.1 mg/dL (2.7-4.5); Potassium 4.1 mmol/L (3.3-5.1); Sodium 142 mmol/L (135-145); Total Protein 7.2 g/dL (6.5-8.0)
[2023-10-22 10:48] LABS: HBS Num1 1.28 mIU/mL (0-7.99); HBc Num1 0.08 S/CO (0.00-0.79); HBsAGNum1 0.23 S/CO (0.00-0.99); Hepatitis A Antibody IgM 0.13 Index (0-0.79); Hepatitis B Core Antibody Nonreactive (Nonreactive); Hepatitis B Surface Antigen Negative (Negative); ~HepC Num1 0.17 S/CO (0.00-0.79); ~Hepatitis A Antibody IgM Nonreactive (Nonreactive); ~Hepatitis B Surface Antibody NONREACTIVE (Nonreactive); ~Hepatitis C Antibody Nonreactive (Nonreactive)
[2023-10-25 20:54] LABS: Cardiolipin IgG Ab <2.0 GPL-U/mL; Cardiolipin IgM Ab <2.0 MPL-U/mL
[2023-10-25 21:20] LABS: Anti DNA DS Antibody 9 IU/mL; Antibody to SS-A Antigen >8.0 POS AI (<1.0 NEG); Antibody to SS-B Antigen <1.0 NEG AI (<1.0 NEG); SM/Ribonucleoprotein Ab <1.0 NEG AI (<1.0 NEG); Smith Protein <1.0 NEG AI (<1.0 NEG)
[2023-10-26 11:38] LABS: IgA 340 mg/dL (70-320); IgG 1068 mg/dL (600-1540); IgM 36 mg/dL (50-300)
[2023-10-26 22:34] LABS: Prot Elec - Albumin 3.7 g/dL (3.8-4.8); Prot Elec - Alpha1 0.3 g/dL (0.2-0.3); Prot Elec - Alpha2 0.7 g/dL (0.5-0.9); Prot Elec - Beta 1 0.5 g/dL (0.4-0.6); Prot Elec - Beta 2 0.4 g/dL (0.2-0.5); Prot Elec - Gamma 0.9 g/dL (0.8-1.7); Prot Elec - Total Protein 6.4 g/dL (6.1-8.1)
[2023-10-27 08:54] LABS: Complement C3 110 mg/dL (83-193)
[2023-10-28 07:03] LABS: DRVVT Confirmation Negative (Negative); Hexagonal Phase Neutralization Negative (Negative); PTT (LAC) Screen 45 sec (<=40)
[2023-10-28 13:17] LABS: Vitamin D 25-OH, D2 5 ng/mL; Vitamin D 25-OH, D3 21 ng/mL; Vitamin D 25-OH, Total 26 ng/mL (30-100)
[2023-10-28 21:48] LABS: Collagen Type I C-Telopeptide 587 pg/mL (see note)
[2023-10-30 07:02] LABS: Beta-2 Glycoprotein IgG <2.0 U/mL (<20.0); Beta-2 Glycoprotein IgM <2.0 U/mL (<20.0)
[2023-10-30 13:48] LABS: DNAds, Crithidia Antibody Positive (Negative)
== END 2023-10-22 08:49 | disposition home or self-care (01) ==
LOC: HO.LAB 08:48
PROVIDERS: PCP Internal Medicine; Visit Provider Student in an Organized Health Care Education/Training Program
DX: Z13.21 Encounter for screening for nutritional disorder (principal); Z11.59 Encounter for screening for other viral diseases; M32.9 Systemic lupus erythematosus, unspecified; M81.0 Age-related osteoporosis without current pathological fracture; D68.62 Lupus anticoagulant syndrome; Z72.89 Other problems related to lifestyle
CPT/HCPCS: 36415; 80053; 81001; 82306; 82523; 82570; 82784; 83970; 84100; 84156; 84165; 84443; 85025; 85597; 85598; 85613; 85652; 85730; 86140; 86146; 86147; 86160; 86225; 86235; 86255; 86334; 86704; 86706; 86709; 86803; 87340

== ENCOUNTER 2024-05-12 11:15 | Outpatient (AMB) | payer MEDICARE, BC, SELFPAY ==
--- NOTE | 2024-05-12 11:27 | MHC.OFFVIS ---
Vital Signs 05/12/24 11:28 Height 5 ft 7 in Weight 147 lb 11.355 oz BMI 23.1 BP 130/78 Blood Pressure Location Lt brachial Position Sitting Pulse 72 Pulse Source Pulse Oximeter Pulse Oximetry (%) 99 Oxygen Delivery Method Room Air Intake Visit Reasons: SLE/cm Intake Note: Patient last seen by Doctor Luis Murrieta on 10/20/23. Presents today for SLE follow up and test results. Allergies carbamazepine [From Tegretol] Allergy (Unknown, Unverified 05/12/24 11:31) Unknown phenytoin [From Dilantin] Allergy (Unknown, Unverified 05/12/24 11:31) Unknown Medication List - Last Reconciled 05/12/24 by Luis Mrurieta MD amlodipine 5 mg PO DAILY hydroxychloroquine 200 mg PO DAILY metoprolol succinate ER 25 mg PO DAILY multivitamin 1 tab PO DAILY warfarin 5mg 3x week, 2.5mg the rest of the days HPI Comments Details: This is a 74-year-old female with SLE and lupus anticoagulant syndrome on warfarin who presents for follow-up. She remains on hydroxychloroquine 200 mg daily and warfarin 5 mg daily. Patient had an episode of vertigo back in February and fell at home, she broke her right hip, she went to the hospital and had right hip replacement, she has recovered uneventfully an working with PT. She continues to have episodes of vertigo. She was referred to see ENT. She states that she feels otherwise well overall. We had discussed Reclast infusion to treat her osteoporosis last visit but patient decided not to proceed for fear of side effects. Most recent history by Dr. Birch 03/2023: The patient returns for evaluation of her SLE and history of antiphospholipid syndrome. She remains on hydroxychloroquine 200 mg daily and warfarin. She has not had any recent blood clots. She gets occasional pain in the right foot, lower back, in the hands. She does have a hand surgery appointment; she has noted some thickening in the palm of the right hand. Occasionally there is pain at the right 3rd PIP but most of the time the hands are not painful. She remains on metoprolol for palpitations. There have been no recent problems with sun sensitivity, skin rashes, oral ulcers, chest pain or abdominal pain. We had a discussion last time about treatment of her osteoporosis with IV zoledronic acid but she still is not wishing to proceed with that. 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 Review of Systems Const Reports frequent falls ENT Reports vertigo and Reports dizziness Musc Reports myalgias, Reports arthralgias and Denies joint swelling Neuro Reports vertigo, Reports dizziness and Reports frequent falls Physical Exam Vital Signs: Last Vital Signs Pulse 72 05/12/24 11:28 BP 130/78 05/12/24 11:28 Pulse Ox 99 05/12/24 11:28 Oxygen Delivery Method Room Air 05/12/24 11:28 BMI result Body Mass Index 23.1 Const General: cooperative, healthy appearing and comfortable Orientation/consciousness: patient oriented x3 Limitations: no limitations HEENT Head: Yes normocephalic and Yes atraumatic Mouth: moist mucous membranes Resp Effort & Inspection: normal respiratory effort and able to speak in complete sentences Auscultation: clear to auscultation bilaterally Cardio Rate: regular rate Neuro General: patient oriented x3 Extrem Other: Significant chronic changes of both hands sleep records arthropathy with some enlargement of the MCPs, multiple swan-neck deformities. Ulnar deviation at the MCPs. 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 Doing well overall. I do not see any signs suggestive of active SLE Continue hydroxychloroquine 200 mg daily Labs before next visit in 3 months (2) Lupus anticoagulant disorder: Comment: claudication in right calf due to thrombosis. On chronic warfarin Code(s): D68.62 - Lupus anticoagulant syndrome Category: Medical Plan: Remains on warfarin. (3) Long-term use of hydroxychloroquine: Comment: Eye exam OK:02/2023 & 08/2023 Code(s): Z79.899 - Other [place] [facility] (current) drug therapy Category: Medical Plan: Patient believes she was on hydroxychloroquine for approximately 20 years in total. Continue to follow-up regularly with certified hyperbaric technologist (4) Osteoporosis: Comment: RT hip fracture Code(s): M81.0 - Age-related osteoporosis without current pathological fracture Category: Medical Qualifiers: Osteoporosis type: age-related Presence of current pathological fracture: without current pathological fracture Qualified Code(s): M81.0 - Age-related osteoporosis without current pathological fracture Plan: Patient was on prednisone for at least 20 years. DEXA in 2021 showed osteoporosis. Patient could not tolerate alendronate due to significant throat and GI irritation. She had a rib fracture earlier this year. I strongly urged patient to start Reclast last visit. She was worried about side effects now that she fractured her right hip her risk of subsequent fracture exponentially higher. She also has vertigo/postural hypotension that does not have a clear etiology or treatment at this time. Which increases her risk of falls. We again discussed the importance of osteoporosis medication. A drug of choice at this time is anabolic therapy such as Romosuzumab. We discussed the risks and benefits of it including the black box warning of slightly increased risk of cardiovascular events. Patient will think about it and let us know. She will be going to [place] in the coming few weeks and return in August Will order a repeat DEXA scan. Advised patient to call the office when she comes back to [place] in August so we can start the prior authorization Plan I spent 29 minutes reviewing patient's chart, evaluating patient, ordering diagnostic workup, counseling patient and documenting in the chart Orders: Orders Erythrocyte Sedimentation Rate 3 Months M32.9 - Systemic lupus erythematosus, unspecified Anti DNA DS Antibody 3 Months M32.9 - Systemic lupus erythematosus, unspecified Protein Creatinine Ratio, Ur 3 Months M32.9 - Systemic lupus erythematosus, unspecified Vitamin D 25-OH Total 3 Months E55.9 - Vitamin D deficiency, unspecified XR DEXA axial skeleton Today M81.0 - Age-related osteoporosis without current pathological fracture Complete Blood Count Auto Diff 3 Months M32.9 - Systemic lupus erythematosus, unspecified Comprehensive Met. Panel 3 Months M32.9 - Systemic lupus erythematosus, unspecified C Reactive Protein 3 Months M32.9 - Systemic lupus erythematosus, unspecified Complement C3 3 Months M32.9 - Systemic lupus erythematosus, unspecified Complement C4 3 Months M32.9 - Systemic lupus erythematosus, unspecified UA w Microscopic 3 Months M32.9 - Systemic lupus erythematosus, unspecified Collagen Type I C-Telopeptide 3 Months M81.0 - Age-related osteoporosis without current pathological fracture Coding Level of Care Code Est Pt Level 4 (12991) Complex EM visit Add On [id number] Diagnoses SLE (systemic lupus erythematosus related syndrome) M32.9 Lupus anticoagulant disorder D68.62 Long-term use of hydroxychloroquine Z79.899 Age-related osteoporosis without current pathological fracture M81.0 Osteoporosis type: age-related Presence of current pathological fracture: without current pathological fracture
[2024-05-12 11:28] VITALS: BP 130/78; PULSE 72; O2SAT 99; BMI 23.1
--- OUTSIDE RECORDS SUMMARY | 2024-05-17 07:50 | XMS_ITS ---
Author Organization [facility], Address [address] [facility] [place] [address] Care Team Providers Care Plastic Molding Operator Name Role Phone Chidi Barcenas [phone] ALLERGIES, ADVERSE REACTIONS, ALERTS Substance Code Code System Type Reaction Severity Status Start Date End Date Tegretol 20290716 RxNorm Drug allergy () 0 Dilantin 173284 RxNorm Drug allergy () 0 Tegretol 254992 RxNorm Drug allergy () 1 Dilantin 203619 RxNorm Drug allergy () 1 MEDICATIONS Medication Code Code System Start Date Stop Date Route Dosage Directions Fill Instructions HYDROXYCHLOROQUIN E 200 MG TAB RxNorm 01/09/20 1 metoprolol succinate 0 RxNorm oral warfarin RxNorm 02/10/20 19 meclizine 490795 RxNorm 2023 oral 1 albuterol sulfate 2731137 RxNorm 023 inhalation 2 ferrous sulfate-folic acid 0 RxNorm oral PROBLEMS Problem Name Code Code System Start Date End Date Stat us Systemic lupus erythematosus , unspecified 604391067 [facility] 02/09/2019 Active Unspecified temporomandibula r joint disorder, unspecified side 48840568 [facility] 02/09/2019 A ctive Anemia, unspecified 856569107 [facility] Active Ventricular premature depolarization 877666141 [facility] Active Benign paroxysmal vertigo, unspecified ear 186328901 [facility] 04/29/2024 Active ENCOUNTERS Encounter Diagnosis Code Code System Date Stat us Benign paroxysmal vertigo, unspecified ear 206607678 [facility] 04/29/2024 Active IMMUNIZATIONS * None VITAL SIGNS Code Code System Vitals Name Date Value and Un its 8462-4 [facility] Blood Pressure-Diastolic 04/29/2024 81 mmHg 8480-6 [facility] Blood Pressure-Systolic 04/29/2024 1 45 mmHg 8867-4 [facility] Heart Rate 04/29/2024 67 /min 9279-[facility] Res[facility] 04/29/2024 18 /min 8310-5 [facility] Body Temperature 04/29/2024 97.3 F 35763-1 [facility] Oxygen Saturation 04/29/2024 96 % SOCIAL HISTORY * None PROCEDURES * None MEDICAL EQUIPMENT * Patient has no history of implantable devices ASSESSMENT Assessment Take the meclizine as needed for dizziness.Please arrange follow-up for the vestibular PT.Please contact the ENT office on Wednesday to see whether or not they have received our referral.If symptoms or not resolving or abruptly worsen please be reevaluated or go to the ER TREATMENT PLAN Type Description Date MEDICATION Take 25 mg tablet 04/29/2024 APPOINTMENT If not feeling azalea r in 3 day(s), please see your primary care physician. If you do not have a primary care physician, please return to this clinic. 04/29/2024 Lab Tests None GOALS * None HEALTH CONCERNS * No Health Concerns FUNCTIONAL AND COGNITIVE STATUS * None CONSULTATION NOTES * Jenny Orantes - 04/29/2024 Referral: Vestibular therapy.Schedule: CompletedInsurance: MEDICARE PART- BMemberID: [id number]: IncompleteNotes:* Referral Reason: Patient with recurrent peripheral vertigo symptoms. Currently are severe and not resolving. Ordered 04/29/2024 11:29 AM by Marium Houser edited 05/03/2024 04:23 PM by Jenny Orantes MA * Jenny Orantes - 04/29/2024 Referral: ENTSchedule: CompletedInsurance: MEDICARE PART-BMemberID: [id number]: IncompleteNotes: [facility] [place] [address] [facility] [address], [place], [place] [address]Stlei:* Comments: Recurrent vertigo over the past few years, 2 severe episodes over the past 2 months, 1 episode resulting in a right hip fracture, current episode over the past week not improving and still quite severe Ordered 04/29/2024 11:31 AM by Marium Houser edited 05/03/2024 04:24 PM by Jenny Orantes MA HARGE SUMMARY NOTES * None HISTORY AND PHYSICAL NOTES * Patient: GARRETT LOWERY, Sex: F (ID# [id number]) Date of : 1950 (74 years) Visit on 04/29/2024 (Log# [id number]) Historian: Self Triage Notes: Pt reports Vertigo symptoms come and go over the last few years. History of Present Illness: 74-year-old female with a history of PVCs presenting for evaluation of dizziness. Patient states a history of vertigo over the past 4 to 5 years. She had an episode at the end of February that resulted in a fall with right hip fracture requiring surgical repair. At that time she was in the hospital and had what sounds like CT/CTA of the head and neck that was reportedly normal for stroke. She reports her symptoms eventually went away, however, returned about a week ago. She has been having room spinning dizziness described as feeling as though she is in an tornado. It is triggered by head movement. If she keeps her head still the symptoms seem to resolve. She has no associated headache, chest pain, shortness of breath, weakness or numbness in the extremities or face. She had a referral to ENT in February but has never been able to arrange follow-up as they reportedas routine and her appointment is not until next November. Complaint: The patient presents with a chief complaint of intermittent dizziness of the head since 1 week ago.It has the following quality: room spinning. Review of Systems: The patient complains of the following recent symptoms: ENT and Mouth: dizziness: See HPI The patient denies the following recent symptoms: ENT and Mouth: denies ear pain, nasal congestion Allergies: Dilantin: Drug allergy. Tegretol: Drug allergy. Medications: warfarin: warfarin; 0 refill(s); metoprolol succinate: metoprolol succinate; (oral) days; 0 refill(s); HYDROXYCHLOROQUINE 200 MG TAB: HYDROXYCHLOROQUINE 200 MG TAB 1 albuterol sulfate: albuterol sulfate 90 mcg/actuation HFA Aerosol Inhaler; Take 2 puff (inhalation)every 4 to 6 hours for 14 days (PRN - shortness of breath or wheezing); Total Qty: 135 (one hundredand thirty-five) gram; 0 refill(s); Substitutions allowed; Earliest Fill Date: 2023 ferrous sulfate-folic acid: ferrous sulfate-folic acid; (oral) days; 0 refill(s); Problem List: Systemic lupus erythematosus, unspecified (status Active) Unspecified temporomandibular joint disorder, unspecified side (status Active) Anemia, unspecified (status Active) Ventricular premature depolarization (status Active) Surgeries: Bone/Joint surgery: joint replacement, of R-Hip 2023. Social History: Tobacco Use: denies Alcohol: denies Street / Unprescribed Drugs: denies Vitals: 11:03 AM (04/29/2024)Temperature: 97.3 ?F, Pulse: 67 BPM, BP: 145/81, Respirations: 18/min, O2 Saturation: 96%, O2 Delivery: RA, Menopause: UnknownFirst entered 04/29/2024 11:03 by Chemo Nichols Physical Exam: The following exam elements were documented to be normal: Psychiatric: oriented and alert. General: Well appearing, no acute distress HEENT: - NC/AT - no conjunctival injection or scleral icterus ? Pupils equally round and reactive to light, EOMs intact, during exam patient is keeping her head incredibly still throughout history and exam. ? TMs normal bilaterally CV: RRR, no mgr Lungs: CTAB MSK: Moving all extremities Neuro: Awake and alert x3, cranial nerves II through XII intact, speech fluent and appropriate, normal [id number], no palmar drift Diagnoses: Benign paroxysmal vertigo, unspecified ear (H81.10) Medication Orders: Prescribed: meclizine 25 mg tablet; Take 1 tablet (oral) 3 times per day for 7 days As needed for dizziness; Total Qty: 21 (twenty-one) tablet; 0 refill(s); Substitutions allowed; Earliest Fill Date:04/29/2024ePrescribed at 11:28 AM on 04/29/2024 by KALEB Houser-CPrescription sent to [facility]/pharmacy #[id number] (P: [phone] F: [phone]) [address] [place] [address], [id number] Plan: If not feeling better in 3 day(s), please see your primary care physician. If you do not have a primary care physician, please return to this clinic. Take the meclizine as needed for dizziness. Please arrange follow-up for the vestibular PT. Please contact the ENT office on Wednesday to see whether or not they have received our referral. If symptoms or not resolving or abruptly worsen please be reevaluated or go to the ER Medical Decision Making Notes: Patient with a history of recurrent vertigo with acute exacerbation over the past week. Given her severe symptoms and recurrence so quickly after her last episode will refer to vestibular PT, start meclizine, refer to ENT Referrals: Referral: Vestibular therapy. Schedule: Patient to schedule within 7 days. Insurance: MEDICARE PART-B MemberID: [id number] Preauthorization: Incomplete Notes: Referral Reason: Patient with recurrent peripheral vertigo symptoms. Currently are severe and not resolving. Ordered 04/29/2024 11:29 AM by Chidi Barcenas PA-C Referral: ENT Schedule: Patient to schedule within 7 days. Insurance: MEDICARE PART-B MemberID: [id number] Preauthorization: Incomplete Notes: [facility] of [address] [address] Notes: Comments: Recurrent vertigo over the past few years, 2 severe episodes over the past 2 months, 1 episode resulting in a right hip fracture, current episode over the past week not improving and still quite severe Ordered 04/29/2024 11:31 AM by Chidi Barcenas PA-C Visit discharged at 04/29/2024 11:31:47 AM by Chidi Barcenas PA-C Signed electronically by Chidi Barcenas PA-C on 04/29/2024 1:39:27 PM IMAGING NOTES * None LABORATORY REPORT NARRATIVE NOTES * None PATHOLOGY REPORT NARRATIVE NOTES * None PROGRESS NOTES * None
--- OUTSIDE RECORDS SUMMARY | 2024-05-17 07:51 | XMS_ITS ---
Author Organization [facility], Address [address] [facility] [place] [address] Care Team Providers Care Director Of Procurement Name Role Phone Chidi Barcenas [phone] ALLERGIES, ADVERSE REACTIONS, ALERTS Substance Code Code System Type Reaction Severity Status Start Date End Date Dilantin RxNorm Drug allergy () 1 Tegretol 20290716 RxNorm Drug allergy () 1 Dilantin RxNorm Drug allergy () 0 Tegretol 088853 RxNorm Drug allergy () 0 MEDICATIONS Medication Code Code System Start Date Stop Date Route Dosage Directions Fill Instructions HYDROXYCHLOROQUIN E 200 MG TAB RxNorm 01/09/20 1 metoprolol succinate 0 RxNorm oral warfarin RxNorm 02/10/20 19 meclizine 597977 RxNorm 2023 oral 1 albuterol sulfate 4197482 RxNorm 023 inhalation 2 ferrous sulfate-folic acid 0 RxNorm oral PROBLEMS Problem Name Code Code System Start Date End Date Stat us Systemic lupus erythematosus , unspecified 771109391 [facility] 02/09/2019 Active Unspecified temporomandibula r joint disorder, unspecified side 55097564 [facility] 02/09/2019 A ctive Anemia, unspecified 682003709 [facility] Active Ventricular premature depolarization 702805259 [facility] Active Benign paroxysmal vertigo, unspecified ear 653945465 [facility] 04/29/2024 Active ENCOUNTERS Encounter Diagnosis Code Code System Date Stat us Acute cough 16292310 [facility] 2023 Active IMMUNIZATIONS * None VITAL SIGNS Code Code System Vitals Name Date Value and Un its 8462-4 [facility] Blood Pressure-Diastolic 2023 64 mmHg 8480-6 [facility] Blood Pressure-Systolic 2023 1 38 mmHg 8867-4 [facility] Heart Rate 2023 84 /min 9279-1 [facility] Respiratory Rate 2023 18 /min 8310-5 [facility] Body Temperature 2023 97.1 F 91217-0 [facility] Oxygen Saturation 2023 95 % SOCIAL HISTORY * None PROCEDURES * None RESULTS Test Code Code System Description Result Value Date Ref erence Range [facility] SARS-CoV-2 Not Detected 2023 Not De tected [facility] Flu A Not Detected 2023 Not Det ected [facility] Flu B Not Detected 2023 Not Det ected MEDICAL EQUIPMENT * Patient has no history of implantable devices ASSESSMENT Assessment You were evaluated for the s inus pressure, congestion, cough, and wheezing.I do not see any obvious signs of pneumonia on your x-ray.As discussed this is very likely to be a viral infection.Use Flonase nasal spray daily to help with the sinus pressure.Use [id number]-oxllfch [place] mist nasal saline to irrigate the nose and sinuses a few times daily.Take Tylenol as needed.The x-ray will be reviewed by a radiologist. If there is any abnormality such as pneumonia seen we will contact the right awayIf symptoms or not improving after 7 to 10 days, you develop a fever, worsening sinus pain, or any other new, concerning symptoms please be reevaluated immediately TREATMENT PLAN Type Description Date MEDICATION Take 90 mcg/actuation HFA Aeroso l Inhaler 2023 APPOINTMENT If not feeling azalea r in 3 day(s), please see your primary care physician. If you do not have a primary care physician, please return to this clinic. 2023 Labs Tests Test Name Code Code System Date SARS-CoV-2 & Flu A/B Multipl ex Assay, Amplified Probe Molecular RT-PCR / NAAT 35306 CPT 2023 GOALS * None HEALTH CONCERNS * No Health Concerns FUNCTIONAL AND COGNITIVE STATUS * None CONSULTATION NOTES * None DISCHARGE SUMMARY NOTES * None HISTORY AND PHYSICAL NOTES * Reason for visit - [facility]'s Lunch Block Override IMAGING NOTES * /Eastern History: Cough-Chest: The patient presents with a chief complaint of cough of the chest since 3 days ago. The patient also reports nasal discharge as an abnormal symptom related to the complaint.ExaminationDescription: Chest xray, frontal and lateral viewsComparisons:None provided. FindingsThe cardi omediastinal silhouette is within normal limits. The lungs are clear. No infiltrate or consolidation noted.No pleural effusions are seen.There is no pneumothorax present. Multi level degenerative change in the spine. IMPRESSION:No infiltrate or other acute findings identified LABORATORY REPORT NARRATIVE NOTES * None PATHOLOGY REPORT NARRATIVE NOTES * None PROGRESS NOTES * None
== END 2024-05-12 11:58 | disposition home or self-care (01) ==
PROVIDERS: PCP Internal Medicine; Visit Provider Student in an Organized Health Care Education/Training Program
DX: M32.9 Systemic lupus erythematosus, unspecified (principal); D68.62 Lupus anticoagulant syndrome; Z79.899 Other long term (current) drug therapy; M81.0 Age-related osteoporosis without current pathological fracture
CPT/HCPCS: 99214; G2211

== ENCOUNTER → 2024-05-12 11:15 | Outpatient (BNVA) | payer MEDICARE, BC, SELFPAY | PROVIDERS: PCP Internal Medicine; Visit Provider Student in an Organized Health Care Education/Training Program | DX: M32.9 Systemic lupus erythematosus, unspecified (principal); M81.0 Age-related osteoporosis without current pathological fracture; E55.9 Vitamin D deficiency, unspecified; D68.62 Lupus anticoagulant syndrome; Z79.01 Long term (current) use of anticoagulants; Z79.899 Other long term (current) drug therapy | CPT/HCPCS: 99212 ==

== ENCOUNTER 2025-01-18 10:11 | Outpatient (REF) | payer MEDICARE, BC, SELFPAY ==
--- OUTSIDE RECORDS SUMMARY | 2025-01-18 10:55 | XMS_ITS ---
Author Name [facility] Organization Unknown Care Team Organization Name Specialty Phone Email Start Date End Da te [facility] Elva Macias Primary Care 05/19/2023 01/24/2024 [facility] SHAHEEN HAWKINS Primary Care 02/11/2023 4 [facility] Keshia, PROVIDER Primary Care 11/13/202201/05 [facility] Rajni Morales Primary Care 10/12/2022 4 [facility] Rajni Morales Primary Care 04/14/2022 4
--- OUTSIDE RECORDS SUMMARY | 2025-01-18 10:55 | XMS_ITS | Encounter Summary ---
Author Organization [facility] Address [address] [place] [address] Care Team Providers Care Staff Nurse Icu Resource Team Name Role Phone Italo Romero MD Primary Care Provider [phone] Encounter Details Date Type Department Care Team (Late Contact Info) Description 04/27/2024 Nurse Triage Adult Medicine [address] [phone] Italo Romero MD [address] [place] [id number] Social History Tobacco Use Types Packs/Day Years Used Date Smoking Tobacco: Some Days Smokeless Tobacco: Current Alcohol Use Standard Drinks/Week Comments Yes 0 (1 standard drink = 0.6 oz pur e alcohol) Comments Unknown Sex and Gender Information Value Date Recorded Sex Assigned at Female 06/21/2024 9:34 AM EST Legal Sex Female 11:39 PM EST Gender Identity Female 06/21/2024 9:34 AM EST Sexual Orientation Straight 06/21/2024 9: 34 AM EST documented as of this encounter Plan of Treatment Upcoming Encounters Date Type Department Care Team (Late Contact Info) Description 01/31/2025 10:30 AM EDT Anticoagulation - Warfarin Visit Coumadin [address] [phone] 02/21/2025 10:30 AM EDT Appointment [facility] Scan [address] [place] [address] 03/02/2025 11:00 AM EDT Ancillary Procedure [facility] [address] [place] [address] 05/04/2025 11:15 AM EST Office Visit [facility] - [address] [phone] Italo Romero MD [address] [place] [address] 09/10/2025 1:20 PM EDT Appointment Radiology Department - [address] [phone] documented as of this encounter Visit Diagnoses Not on filedocumented in this encounter Care Teams Staff Nurse Icu Resource Team Relationship Specialty Start Date End Date Italo Romero MD [address] [place] [address] PCP - General Internal Medicine 11/24/21 documented as of this encounter
[2025-01-18 13:26] LABS: MANUAL DIFF FLAG NO
[2025-01-18 13:29] LABS: Hematocrit 35.0 % (37.0-47.0); Hemoglobin 11.7 g/dl (12.0-16.0); Imm Gran Abs Auto 0.02 X10*3/uL (0.00-0.03); Imm Gran Pct Auto 0.3 % (0.0-0.4); Lymphocytes Absolute Auto 1.7 X10*3/uL (1.2-4.9); Mean Corpuscular HGB Conc 33.4 g/dl (31.0-35.0); Mean Corpuscular Hemoglobin 32.4 pg (27.0-33.0); Mean Corpuscular Volume 97.0 fL (80.0-98.0); NRBC Abs Auto 0.000 X10*3/uL (0.0-0.012); NRBC Pct Auto 0.0 /100WBC (0.0-0.2); Platelet Count 249 X10*3/uL (160-400); Red Blood Count 3.61 X10*6/uL (4.20-5.50); White Blood Count 6.7 X10*3/uL (4.8-10.8)
[2025-01-18 13:48] LABS: Appearance Urine Clear; Glucose Urine UA Negative (Negative); PH 5.5 (5.0-9.0); Specific Gravity - Urine <= 1.005 (1.005-1.025); UMIC TRIGGER UA YES
[2025-01-18 14:14] LABS: Alanine Aminotransferase 12 U/L (0-31); Albumin Level 4.1 g/dL (3.5-5.0); Alkaline Phosphatase 85 U/L (39-117); Anion Gap 13 (12-20); Aspartate Amino Transferase 24 U/L (5-31); Blood Urea Nitrogen 13 mg/dL (9-16); Calcium 9.3 mg/dL (8.4-10.2); Carbon Dioxide 27 mmol/L (22-29); Chloride 106 mmol/L (96-108); Estimated Glomerular Filt Rate > 60; Potassium 4.4 mmol/L (3.3-5.1); Sodium 142 mmol/L (135-145); Total Protein 6.6 g/dL (6.5-8.0)
[2025-01-18 14:31] LABS: Total Protein Urine Random < 7 mg/dL (<12)
== END 2025-01-18 10:12 | disposition home or self-care (01) ==
LOC: HO.HKASLDS 10:11
PROVIDERS: Visit Provider Student in an Organized Health Care Education/Training Program
DX: Z01.84 Encounter for antibody response examination (principal); M81.0 Age-related osteoporosis without current pathological fracture; Z79.899 Other long term (current) drug therapy
CPT/HCPCS: 36415; 80053; 81001; 82306; 82570; 84156; 85025; 85652; 86140; 86160; 86225

== ENCOUNTER 2025-03-21 11:25 | Outpatient (AMB) | payer MEDICARE, BC, SELFPAY ==
--- NOTE | 2025-03-21 11:30 | A.OFFVIS_ITS ---
Vital Signs 03/21/25 11:31 Height 5 ft 7 in Weight 145 lb 8.081 oz BMI 22.8 BP 170/80 H Blood Pressure Location Lt brachial Position Sitting Pulse 60 Pulse Source Pulse Oximeter Pulse Oximetry (%) 98 Oxygen Delivery Method Room Air Intake Visit Reasons: SLE Intake Note: Presents today for SLE follow up and lab review. Accompanied by: Self / Same As Patient Allergies carbamazepine (From Tegretol) Allergy (Unknown, Verified 03/21/25 11:30) Unknown phenytoin (From Dilantin) Allergy (Unknown, Verified 03/21/25 11:30) Unknown Medication List - Last Reconciled 03/21/25 by Zo Balbuena MD hydroxychloroquine 200 mg PO DAILY metoprolol succinate ER 25 mg PO DAILY multivitamin 1 tab PO DAILY warfarin 5mg 3x week, 2.5mg the rest of the days HPI Comments Details: Patient is a 75-year-old female with hypertension, SLE complicated by APLS and polyarticular osteoarthritis here today for follow up Interval History: Patient last seen 05/[address] Murrieta - On hydroxychloroquine 200 mg daily and warfarin 5 mg daily. - Patient had an episode of vertigo back in February and fell at home, she broke her right hip, she went to the hospital and had right hip replacement, she has recovered uneventfully an working with PT. She continues to have episodes of vertigo. She was referred to see ENT. - She states that she feels otherwise well overall. - We had discussed Reclast infusion to treat her osteoporosis last visit but patient decided not to proceed for fear of side effects. Today - On hydroxychloroquine 200 mg daily and warfarin 5 mg daily. 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 Birch 03/2023: The patient returns for evaluation of her SLE and history of antiphospholipid syndrome. She remains on hydroxychloroquine 200 mg daily and warfarin. She has not had any recent blood clots. She gets occasional pain in the right foot, lower back, in the hands. She does have a hand surgery appointment; she has noted some thickening in the p denise of the right hand. Occasionally there is pain at the right 3rd PIP but most of the time the hands are not painful. She remains on metoprolol for palpitations. There have been no recent problems with sun sensitivity, skin rashes, oral ulcers, chest pain or abdominal pain. We had a discussion last time about treatment of her osteoporosis with IV zoledronic acid but she still is not wishing to proceed with that. Current Rheumatology Medication(s): Hydroxychloroquine 200mg daily [facility] Medical History (Updated 03/22/25 @ 10:08 by Zo Balbuena MD) Vertigo Warthin tumor SLE (systemic lupus erythematosus related syndrome) Osteoporosis History of DVT (deep vein thrombosis) Osteoarthritis Surgical History (Updated 03/21/25 @ 11:38 by Karen Urban [facility]) History of right hip replacement S/P foot surgery, left Hx of cataract extraction Family History Mother Diabetes Myocardial infarction Father Myocardial infarction Colon cancer Brother Lupus History of Crohn's disease Kidney failure, acute Social History Alcohol intake: current Alcohol intake frequency: holidays/special occasions only Alcohol type: wine Patient Tobacco Use Status: Current someday Tobacco user Current occupational status: previously employed Current occupation: worked for the [employer] Review of Systems Const Details: Review of Systems Constitutional: Denies fever, chills, weight loss ENT: Denies vision changes, eye pain or eye redness, dental caries, dry mouth GI: Denies nausea, vomiting, diarrhea, abdominal pain, change in BM Pulm: Denies SOB, BAGLEY, hemoptysis, wheezing Cards: Denies chest pain, palpitations Skin: Denies Raynaud's, rash, nail changes, photosensitivity, MEAT SMOKER: Denies headaches, weakness, paresthesias, recurrent falls MSK: as per HPI All other systems reviewed and are unremarkable except noted above Physical Exam Exam Exam: Vital signs reviewed Physical Examination CONSTITUITIONAL Patient alert and cooperative. Well appearing and in no apparent painful distress MSK Hands * Right Hand: Not able to make a fist. No swelling or tenderness to palpation of the MCPs, PIPs or DIPs. * Left Hand: Npt able to make a fist. No swelling or tenderness to palpation of the MCPs, PIPs or DIPs. 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 No swelling or TTP * Left Wrist: Full ROM to flexion and extension. No swelling or TTP Elbows * Right Elbow: Full ROM. No swelling or TTP. No TTP of the medial epicondyle. No TTP of the lateral epicondyle * Left Elbow: Full ROM. No swelling or TTP. No TTP of the medial epicondyle. No TTP of the lateral epicondyle Shoulders * Right shoulder: No swelling noted. No TTP of the AC joint. No TTP of the subacromial bursa. No TTP of the posterior shoulder * Left shoulder: No swelling noted. No TTP of the AC joint. No TTP of the subacromial bursa. No TTP of the posterior shoulder Knees * Right knee: Full ROM. No swelling noted. No TTP of the knee joint line. No TTP of pes anserine bursa * Left knee: Full ROM. No swelling noted. No TTP of the knee joint line. No TTP of pes anserine bursa. * Crepitations felt bilaterally Ankles * Right ankle: Good ankle dorsiflexion and plantar flexion. No swelling. No TTP of the ankle joint * Left ankle: Good ankle dorsiflexion and plantar flexion. No swelling. No TTP of the ankle joint Feet * Right foot: Negative squeeze test * Left foot: Negative squeeze test Tender points? * No tenderness to palpation of the bilateral trapezius, supraspinatus, anterior costochondral junctions, bilateral suboccipital muscle insertions SKIN No rashes Vital Signs: Last Vital Signs Pulse 60 03/21/25 11:31 BP 170/80 H 03/21/25 11:31 Pulse Ox 98 03/21/25 11:31 Oxygen Delivery Method Room Air 03/21/25 11:31 BMI result Body Mass Index 22.8 Results Reviewed Results Reviewed: Laboratory Tests 10/22/23 01/18/25 09:10 10:21 WBC 6.7 RBC 3.61 L Hgb 11.7 L Hct 35.0 L Plt Count 249 ESR 17 Sodium 142 Potassium 4.4 Chloride 106 Carbon Dioxide 27 BUN 13 Creatinine 0.70 AST 24 ALT 12 C-Reactive Protein 0.23 25-OH Vitamin D Total 26 L 47.3 Laboratory Tests 10/22/23 09:10 SS-A/Ro Antibody >8.0 POS A Anti-ds DNA Titer (Crith) 1:160 H Anti-ds DNA (Crithidia) Positive A Laboratory Tests 10/22/23 01/18/25 09:10 10:21 Double Strand DNA Ab 5 H Complement C3 110 111 Complement C4 20 21 DEXA 12/2022 Lumbar spine T-score -2.4 Left hip T-score -3.0 Assessment & Plan Assessment & Plan (1) SLE (systemic lupus erythematosus related syndrome): Comment: Onset 1969: MEAT SMOKER disease, rash, arthritis, positive serolgies R leg arterial thrombosis, 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 and hydroxychloroquine (neg eye exam 06/29/12,01/23/14, 02/25/15, 11/20) Hydroxychloroquine tapered and stopped 06/22; restarted 2016 Code(s): M32.9 - Systemic lupus erythematosus, unspecified Category: Medical Plan: #SLE Patient is a 75-year-old female with longstanding systemic lupus erythematosus complicated by APLS on long-term warfarin Exam and history today stable without any evidence of active disease Plan - Hydroxychloroquine 200mg daily - RTC 6 months - Labs before visit: CBC, CMP, ESR, CRP, C3, C4, dsDNA (2) Osteoporosis: Comment: RT hip fracture Code(s): M81.0 - Age-related osteoporosis without current pathological fracture Category: Medical Qualifiers: Osteoporosis type: age-related Presence of current pathological fracture: without current pathological fracture Qualified Code(s): M81.0 - Age- related osteoporosis without current pathological fracture Plan: #Osteoporosis Patient with osteoporosis complicated by right hip fracture. 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 On chronic warfarin Code(s): D68.62 - Lupus anticoagulant syndrome Category: Medical Plan: #APS Patient with antiphospholipid syndrome currently on long-term warfarin Plan - continue Warfarin (5) Long-term use of hydroxychloroquine: Comment: Eye exam OK:02/2023 & 08/2023 Code(s): Z79.899 - Other shelter (current) drug therapy Category: Medical Plan: #Long-term Use of Hydroxychloroquine Discussed with patient the risks and benefits of hydroxychloroquine in managing the rheumatic condition Benefits include: - Reduced pain, reduce mortality, maintenance of remission and reduction of flares Risks include: - GI upset, skin hyperpigmentation, retinal toxicity (especially after more than 5 years of use), myopathy Advised yearly ophthalmology visits Plan This is my first visit with the patient. I spent 40 minutes reviewing the record and labs, taking a history, examining the patient, discussing the treatment plan, ordering diagnostic work up and documenting in the medical record Orders: Orders C Reactive Protein 6 Months M32.9 - Systemic lupus erythematosus, unspecified Anti DNA DS Antibody 6 Months M32.9 - Systemic lupus erythematosus, unspecified Complete Blood Count Auto Diff 6 Months M32.9 - Systemic lupus erythematosus, unspecified Comprehensive Met. Panel 6 Months M32.9 - Systemic lupus erythematosus, unspecified Erythrocyte Sedimentation Rate 6 Months M32.9 - Systemic lupus erythematosus, unspecified Complement C3 6 Months M32.9 - Systemic lupus erythematosus, unspecified Complement C4 6 Months M32.9 - Systemic lupus erythematosus, unspecified Medications: Refilled hydroxychloroquine 200 mg PO DAILY 90 tabs 1RF M32.9 - Systemic lupus er ythematosus, unspecified Coding Level of Care Code Est Pt Level 5 (89716) Complex EM visit Add On G2211 Diagnoses SLE (systemic lupus erythematosus related syndrome) M32.9 Age-related osteoporosis without current pathological fracture M81.0 Osteoporosis type: age-related Presence of current pathological fracture: without current pathological fracture Primary osteoarthritis of both hands M19.041; M19.042 Osteoarthritis type: primary Lupus anticoagulant disorder D68.62 Long-term use of hydroxychloroquine Z79.899
[2025-03-21 11:31] VITALS: BP 170/80; PULSE 60; O2SAT 98; BMI 22.8
--- OUTSIDE RECORDS SUMMARY | 2025-03-21 14:18 | XMS_ITS | Data Portability ---
Author Organization [place] - [facility], Allergy Address [address] [address] Care Team Providers Care Field Sampling Technician Name Role Phone MALISSAANITA AVALOS Primary Care Provider Assessment Encounter Date Assessment Date Assessment LastModified by Organization Details LastModified Time 06/13/2024 06/13/2024 Patient with history of lupus and antiphospholipid hypercoagulable state. Recently had hip replacement. She is presently on warfarin. Noted to have left parotid mass during workup for dizziness in February. Recently had ultrasound showing a 2.3 x 2 x 1.2 cm complex hypervascular mass in the left parotid region and a smaller less than 1 cm hypervascular nodule in the right parotid. I can palpate the left parotid mass. We discussed that most likely based on statistics this is a benign mass, however, malignancy cannot be excluded and needs tissue sampling. I have suggested a needle biopsy. She does not want to return to [place] for her procedure we will try to expedite things through the [place] endovascular team. [email or web address] Not available 06/13/2024 12:06:37 06/26/2024 06/26/2024 Patient underwen t fine-needle aspiration for the incidental left parotid mass. This was consistent with Warthin's tumor. She is anxious as her iymyodfh-gq-hae has adenoid cystic carcinoma. We reviewed that these are benign growths but the only way to know for sure would be to have surgical pathology and have the lesion removed. There is a second lesion on the other side which I cannot palpate which is typically seen with Warthin's tumors. Her dhnbtknh-xo-xee has been treated at [facility] in [place] and the patient would like referral to Dr. Houser. I think this would be great as her medical condition is quite complicated given the hypercoagulable state. [email or web address] Not available 06/26/2024 11:01:14 06/30/2024 06/30/2024 Patient with episodic positionally induced vertigo. 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 The pathophysiology of BPPV was discussed in detail. Patient was provided with a referral for physical therapy for Maria A maneuvers and vestibular therapy.We discussed the fact that treatment of BPPV can require anywhere from 1 to 6 treatments for successful results, and has approximately 95% success rate in eliminating symptoms. BPPV can recur and if the classic positionally induced symptoms do recur, patient can call for further referrals. 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 Speech recognition is good and amplification is not currently indicated. Recommend repeat audiometric testing in 1-2 years or with perceived change. [email or web address] Not available 06/30/2024 16:44:21 Plan of Treatment Reminders Order Date Submit Date Provider Last Modified By Organization Details Last Modified Time Details Appointments None recorded. Lab None recorded. Referral physical therapist [facility] [place], [address] [place] [address], [place], [address], 5 14:05:08 head and neck referral 2024 025 [email or web address] Nikko Houser MD, [address] [place], [address], 5 16:18:51 Procedures fine needle aspiration , ultrasound guided, neck mass (PROC) 2024 025 [email or web address] David Treviño MD, [address] [place], [address], 5 16:17:23 Surgeries None recorded. Imaging None recorded. Medication Orders None recorded. Patient TargetsNo targets recorded. Patient InstructionsNo instructions recorded. 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 [email or web address] Not Available 2024 11:35:35 06/22/1903/20/2024 US, head + neck, soft tissu e No observ ation record ed. [email or web address] Not Available 2024 11:36:59 07/03/19 audio gram No observ ation record ed. [email or web address] Not Available 2024 10:22:43 Result Notes None recorded. Problems Name Problem SNOMED Code Status Onset Date Resolution Date Notes Provider Name and Address Organization Details Recorded Time Systemic lupus erythematos us-related syndrome 517588560 Active 2005 Judah patterson [place] - [facility] 11:49:28 Degenerativ e joint disease of thumb 5656180776234 4102 Active 2012 Judah patterson [place] - [facility] 11:49:28 Osteoporosi s 05535218 Active 2014 Judah patterson [place] - [facility] 11:49:28 Antiphospho lipid syndrome 23252308 Active 2016 Judah patterson [place] - [facility] 11:49:28 Inflamed seborrheic keratosis 948662575 Active 2017 Judah patterson [place] - [facility] 11:49:28 Primary osteoarthri tis of ankle 832828100 Active 2018 Judah patterson [place] - [facility] 11:49:28 Dysfunction of posterior tibial tendon of right foot 3804108470444 105 Active 2018 Judah patterson [place] - [facility] 11:49:28 Osteoarthri tis of right knee joint 9937380409864 00 Active 2019 Judah patterson [place] - [facility] 11:49:28 Nodule of lung 674913571 Active 2020 Judah patterson [place] - [facility] 11:49:28 Multiple premature ventricular complexes 854529781 Active 2020 Judah patterson [place] - [facility] 11:49:28 Mitral valve regurgitati on 91339535 Active 2020 Judah patterson [place] - [facility] 11:49:28 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 Judah patterson [place] - [facility] 5 11:49:28 Vaginal dryness 86860289 Active 2022 Judah patterson [place] - [facility] 5 11:49:28 History of deep vein thrombosis 945363231 Active 2023 Judah patterson [place] - [facility] 5 11:49:28 Chronic deep venous thrombosis of right lower extremity 7987413650251 02 Active 2023 Judah patterson [place] - [facility] 5 11:49:28 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 BETHEL CHASE MD [address] [address], [place], [address], [place] - [facility] 5 12:03:54 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 BETHEL CHASE MD [address] [address], [place], [address], [place] - [facility] 11:01:59 Sensorineur al hearing loss of bilateral ears 293016962 Active 2024 NELSON ARAUZ, [facility] [address] [facility],[address] [address], [place], [address], [facility] - [facility] 15:01:53 Dizziness and giddiness 043122606 Active 2024 NELSON ARAUZ, [facility] [address] [facility],[address] [address], [place], [address], [facility] - [facility] 15:02:01 Benign paroxysmal positional vertigo 318705098 Active 2024 Moon patterson [place] - [facility] 15:51:04 Bilateral tinnitus 1253207909080 Active 2024 Moon patterson [place] - [facility] 16:44:08 Problem Notes None recorded. Procedures Surgical History Date Name Laterality Status Provider Name and Address Organization Details Recorded Time Comp Audio with Tymps - 83810 & 48736 completed NELSON SWANSONWHITNEYSHEA, [address],[place] [address], [place], [address], [facility] - [facility] 06/30/2024 15:02:07 total replacement of hip completed Judah Small [facility] 06/13/2024 11:57:10 Imaging Results None recorded. Procedure Notes None recorded. Medical Equipment None Reported. Allergies Allergen ID Allergen Name Allergen Category Reaction Reaction Severity Criticality Documentation Date Start Date Code Code System Note Provider Name and Address Organization Details Recorded Time 759921 carbamaze pine medicatio n Not available Not available Not available 06/13/20242005 RxNorm Judah patterson [place] - [facility] 11:49:13 834228 phenytoin sodium medicatio n Not available Not available Not available 06/13/20242005 90746 RxNorm Judah patterson [place] - [facility] 11:49:13 Medications Name Sig Start Date Stop Date Status Note LastModified by Organization Details LastModified Time prednisone 10 mg tablet PLEASE SEE ATTACHED FOR DETAILED DIRECTION S 06/13 completed Not Available Not Available Not Available warfarin 10 mg tablet 5 mg as needed by oral route. active Not Available Not Available No t Available Debrox 6.5 % ear drops 0 [drp]s twice a day by otic route. 2023 active Not Available Not Available Not Avai lable meclizine 12.5 mg tablet Take 12.5 mg 3 times a day by oral route. 06/30 completed Not Available Not Available Not Available amlodipine 5 mg tablet TAKE 1 TABLET BY MOUTH EVERY DAY active Not Available Not Available No t Available calcium 600 mg (as carbonate)- vitamin D3 5 mcg (200 unit) tablet active Not Available Not Available Not Available Prednisone (Gurinder) 10 mg tablet 06/30 completed Not Available Not Available Not Available ascorbic acid (vitamin C) 500 mg tablet active Not Available Not Available Not Available meclizine 25 mg tablet TAKE 1 TABLET BY MOUTH 3 TIMES PER DAY FOR 7 DAYS NEEDED FOR DIZZINESS 06/30 completed Not Available Not Available Not Available benzonatate 100 mg capsule TAKE 1 CAPSULE BY MOUTH THREE TIMES A DAY FOR COUGH FOR 7 DAYS 06/13 completed Not Available Not Available Not Available ferrous sulfate 325 mg (65 mg iron) tablet TAKE 1 TABLET BY MOUTH EVERY DAY active Not Available Not Available No t Available warfarin 5 mg tablet TAKE 1 TABLET BY MOUTH DAILY. OR DIRECTED BY THE CLINIC. active Not Available Not Available No t Available losartan 25 mg tablet TAKE 1 TABLET BY MOUTH EVERY DAY active Not Available Not Available No t Available folic acid 1 mg tablet TAKE 1 TABLET BY MOUTH EVERY DAY active Not Available Not Available No t Available metoprolol succinate ER 25 mg tablet,exte nded release 24 hr TAKE 1 TABLET BY MOUTH EVERY DAY active Not Available Not Available No t Available hydroxychlo roquine 200 mg tablet TAKE 1 TABLET BY MOUTH EVERY DAY active Not Available Not Available No t Available oxycodone 5 mg tablet TAKE 1 TABLET BY MOUTH EVERY 6 HOURS NEEDED FOR PAIN FOR 3 DAYS 06/13 completed Not Available Not Available Not Available enoxaparin 60 mg/0.6 mL subcutaneou s syringe INJECT 0.6 ML (60 MG TOTAL) UNDER THE SKIN EVERY 12 (TWELVE) HOURS. PLEASE DISPENSE 10 SYRINGES 06/30 completed Not Available Not Available Not Available metoprolol succinate active Not Available Not Available No t Available sodium,pota ssium,mag sulfates 17.5 gram-3.13 gram-1.6 gram oral soln TAKE 177 ML BY MOUTH SEE ADMIN INSTRUCTI ONS FOR 2 DOSES. 06/13 completed Not Available Not Available Not Available Vitals Date Recorded Body height Body mass index (BMI) Body weight Provider Name and Address Organization Details Last Updated DateTime 06/26/2024 170.18 cm 23 kg/m2 43477.08 g Judah Small MA [facility] 06/26/2024 10:28:12 Date Recorded Body height Body mass index (BMI) Body weight Provider Name and Address Organization Details Last Updated DateTime 06/30/2024 170.18 cm 22.9 kg/m2 74727.49 g Lupe Acevedo [facility] 06/30/2024 15:19:15 Social History None recorded. Functional Status None recorded. Mental Status None recorded. Family History Nothing Reported. Medical History Condition Response Bleeding Disorder Anemia Y Arthritis Y Immune System Disorder Y Hypertension Y Gynecological HistoryNo gynecological history recorded. Obstetrics History GPAL:G 0 P 0 0 0 0 Immunizations Vaccine Type Date Status Note Provider Nam e and Address Organization Details Recorded Time Influenza, high-dose, quadrivalent, PF 8 completed Judah patterson [facility] 06/13/2024 11:49:50 Influenza, high-dose, quadrivalent, PF 5 completed Judah patterson [facility] 06/13/2024 11:49:50 Influenza, adjuvanted, quadrivalent, PF 1 completed Judah patterson [facility] 06/13/2024 11:49:50 COVID-19, mRNA, LNP-S, PF, 30 mcg/0.3 mL dose 2 completed Judah patterson [facility] 06/13/2024 11:49:50 COVID-19, mRNA, LNP-S, PF, 30 mcg/0.3 mL dose 04/09/202 1 completed Judah Small null, [place] - [facility] 06/13/2024 11:49:50 COVID-19, mRNA, LNP-S, PF, 30 mcg/0.3 mL dose 1 completed Judah Small null, [place] - [facility] 06/13/2024 11:49:50 pneumococcal polysaccharide PPV23 2 completed Judah Small null, [place] - [facility] 06/13/2024 11:49:50 Tdap 3 completed Judah Small null, [place] - [facility] 06/13/2024 11:49:50 Pneumococcal conjugate PCV 13 7 completed Judah Small null, [place] - [facility] 06/13/2024 11:49:50 Influenza, high-dose, trivalent, PF 2 completed Judah Small null, [place] - [facility] 06/13/2024 11:49:50 Influenza, high-dose, trivalent, PF 6 completed Judah Small null, [place] - [facility] 06/13/2024 11:49:50 Influenza, high-dose, trivalent, PF 7 completed Judah Small null, [place] [facility] 06/13/2024 11:49:50 Influenza, split virus, trivalent, preservative 9 completed Judah Small null[place] [facility] 06/13/2024 11:49:50 Influenza, split virus, trivalent, preservative 3 completed Judah Small null, [place] [facility] 06/13/2024 11:49:50 Influenza, split virus, trivalent, preservative 6 completed Judah Small null, [place] [facility] 06/13/2024 11:49:50 Influenza, split virus, trivalent, preservative 5 completed Judah Small null, [place] - [facility] 06/13/2024 11:49:50 Influenza, split virus, trivalent, preservative 2 completed Judah patterson [place] - [facility] 06/13/2024 11:49:50 Influenza, split virus, trivalent, preservative 4 completed Judah patterson, [place] - [facility] 06/13/2024 11:49:50 Novel [id number], preservative-free 0 completed Judah patterson [facility] 06/13/2024 11:49:50 Past Encounters Encounter ID Performer Location Encounter Start Date Encounter Closed Date Diagnosis/Indication Diagnosis SNOMED-CT Code Diagnosis ICD10 Code Diagnosis IMO Codes Diagnosis Note [id number] BETHEL VEGA MD [facility] on [address] [place] [address] 06/13/2024 11:15:07 06/13/2024 12:11:28 Neoplasm of uncertain behavior of parotid gland 70183456 D37.030 Antiphosph olipid syndrome 67406714 D68.61 [id number] BETHEL VEGA MD [facility] [address] [address] 06/26/2024 10:08:04 06/26/2024 11:05:43 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 084838322 D37.039 [id number] MOON KAT PA-C [facility] [address] [address] 06/30/2024 14:46:55 06/30/2024 15:57:11 Benign paroxysmal positional vertigo 225156542 H81.10 Bilateral tinnitus 47986 66857 102 H93.13 Sensorineu ral hearing loss of bilateral ears 461441354 H90.3 [id number] MARGARET CARDOSO [facility] [address] [address] 06/30/2024 15:01:40 07/03/2024 07:29:06 Sensorineural hearing loss of bilateral ears 637626226 H90.3 Dizziness and giddiness 018452691 R42 Right Ear:Normal hearing through 500 Hz sloping to a severe SNHL with excellent speech discrimina tion.Type A tympanogra m.Left Ear:Normal hearing through 500 Hz sloping to a severe SNHL with excellent speech discrimina tion.Type A tympanogra m. Health Concerns Section Related Observation LastModified by Organization Detai ls LastModified Time None Recorded Concern Status LastModified by Organization Details LastModified Time None Recorded Advance Directives Directive None Recorded Payers Insurance Date Sequence Insurance Name Policy Number Policy Mendez Covered Member ID Mendez Member ID Guarantor Name 09/27/2024 2 [place] [id number] Annabelle Harris [id number] Annaeblle Harris 09/27/2024 1 [place] [employer] Annabelle Harris [id number] Annabelle Harris Notes Date Note Type Note Provider Name and Address Organization Details Recorded Time 06/13/2024 text/html Patient with history of lupus and antiphospholipid hypercoagulable state. Recently had hip replacement. She is presently on warfarin. Noted to have left parotid mass during workup for dizziness in February. Recently had ultrasound showing a 2.3 x 2 x 1.2 cm complex hypervascular mass in the left parotid region and a smaller less than 1 cm hypervascular nodule in the right parotid. I can palpate the left parotid mass. Anxious as daughter in law rrecently diagnosed with adenoid cystic CA and she is planning to go to [place] in a few weeks BETHEL FLOR MD [address] [place] [address], [phone], [place] - [facility] 06/13/2024 13:12:22 06/26/2024 text/html Patient underwent fine-needle aspiration for the incidental left parotid mass. This was consistent with Warthin's tumor. She is anxious as her jiiwnbnh-zn-uob has adenoid cystic carcinoma. BETHEL FLOR MD [address] [place] [address], [phone], [place] - [facility] 06/26/2024 11:04:06 06/30/2024 text/html ROS as noted in the HPI 74 year old female presents for evaluation of ears and hearing. Has had intermittent episodes of imbalance over the years. After she started an anti-hypertensive a year ago, she suffered a fall. She discontinued the medication and was started on amlodipine in its place and that decreased the frequency of the episodes. A month or so ago she put her head down to dry her hair and had sensation of spinning. [place] like she was being pushed over. She fell and broke her hip. For a while after that she had the spinning sensation all the time, particularly when she put her head back. Lasted for 3-4 weeks and went to urgent care. Was given meclizine for 7 days. Then PCP continued the prescription and she takes it at bedtime. Currently having the spinning only when reaching high or bending low or when she turns too quickly. She used to awaken daily with vertigo but now has a different type of dizziness, which is decreasing in intensity. There is a swishing sound in her head only when she moves her head around. Not in time with pulse. Decreasing in frequency recently. Was referred for vestibular therapy but has not started that because she hurt her back. Feels her hearing is good. There is no other tinnitus besides the intermittent swishing. There is no otalgia and no otorrhea. There is no associated syncope, confusion, slurred speech, vision change, loss of visual field, chest pain, heart palpitations, nor extremity or facial weakness or paralysis. Headaches are not worst of lifetime and do not have thunderclap onset. Moon patterson [place] - [facility] 06/30/2024 16:44:38 OBGyn Episode No OBEpisode recorded.
--- OUTSIDE RECORDS SUMMARY | 2025-03-21 14:19 | XMS_ITS | Data Portability ---
Author Organization [place] - [facility], [facility] Address [address] [place] [address] Care Team Providers Care Machine Cell Tuber Name Role Phone ANITA HENDRICKS Primary Care Provider Assessment Encounter Date Assessment Date Assessment LastModified by Organization Details LastModified Time 03/23/2024 03/23/2024 I am seeing the patient today under the supervision of who was available but who did not see the patient. HISTORY OF PRESENT ILLNESS The patient presents today for follow-up, now two weeks status post Right total hip arthroplasty. Overall progressing nicely, happy with results. No significant complaints of pain.No neurovascular changes. PAST MEDICAL/SURGICAL HISTORY Reviewed today, otherwise unchanged per intake sheet REVIEW OF SYSTEMS Systemic: No fever and no chills. Cardiovascular: No chest pain or discomfort. Pulmonary: No dyspnea. PHYSICAL FINDINGS General Appearance: Well developed. n no acute distress. Musculoskeletal System: Hips: Right Hip: Hip was not tender on palpation. No pain was elicited by active motion. No pain was elicited by passive motion. Lower Leg: General/bilateral: Calves of both lower legs were not tender on palpation. Neurological: Oriented to time, place, and person. Gait And Stance: An operative sided antalgic gait was observed with assistive device. Psychiatric: Mood was appropriate to the affect. Skin: Physical examination of the hip revelas the incision to be intact, no erythema or drainage, no evidence of infection. 4/5 strength, normal sensation. Contralateral side shows no warmth, erythema, soft tissue swelling, or effusion. TESTS X-rays ordered, obtained, and reviews today at [facility], two views, reveal maintained alignment of the prosthetic components, no fracture or dislocation,excell ent interface ASSESSMENT Progressing nicely two weeks status post Right total hip arthroplasty. PLAN Reviewed total hip precautions with the patient, who showed good understanding, and will continue to monitor for any evidence of infection, Follow-up in one month for re-evaluation, sooner if there is any complications. [email or web address] Not available 03/23/2024 09:58:07 06/09/2024 06/09/2024 Patient seen und er general supervision of Dr. Shankar who was available but who did not see the patient. HPI: 74-year-old female seen today. She is status post right total hip arthroplasty performed in February with Dr. Barnes. Patient had been doing well regarding the hip. Reports over the holidays she had contracted a cold and was coughing a great deal. Reports since this time she has had pain about her back which extends down the legs. Patient reports she has a history of arthritis in her back, does not currently follow with any web design specialist. She denies any fall or trauma. Examination: 74-year-old female no acute distress accompanied by her . Examination lumbar spine no ecchymosis or erythema or warmth noted. Limited range of motion secondary to irritability. Negative seated straight leg raise bilaterally. Calves are soft. Examination of the right hip reveals well-healed surgical incision over the irritability with passive or active range of motion. X-rays ordered, obtained and reviewed at [facility] 2 views of the right hip reveals cement was right total hip arthroplasty. No evidence of periprosthetic fracture or loosening. 2 views lumbar spine revealed diffuse degenerative changes, no definitive fracture identified. No spondylo-or retrolisthesis noted. Impression: Lumbar radiculopathy with degenerative disc disease Plan: Treatment options are discussed. Patient started on a prednisone taper. She will be referred to a web design specialist for evaluation. He was also referred to therapy for lumbar stabilization program. Total hip precautions are discussed patient currently doing well in this regard currently. Sand [facility] speech recognition chrome plater helper software was used to create portions of this document. An attempt at proofreading has been made to minimize errors. Please call for corrections. [email or web address] Not available 06/09/2024 11:16:59 06/27/2024 06/27/2024 PROBLEM: Status post Right total hip arthroplasty for fracture performed on 03/06/24 HPI: Patient returns today for follow-up of their total hip arthroplasty. They report they have returned to most activities of daily living. The patient has no specific concerns today in the office. They have completed outpatient physical therapy. The patient has no sensation of leg length inequality. Past family, medical, social history and review of systems has been reviewed, updated and signed by me and is located in the patient s chart. EXAM: The patient ambulates with a non-antalgic gait. The surgical wound is well-healed. There is a negative Stinchfield test. There is minimal lateral tenderness. The patient has no pain with internal/external rotation of her hip. IMAGING: Previously obtained X-rays reviewed in the office today on [facility] PACS: AP pelvis and right frog lateral show appropriate position of the patient's right total hip arthroplasty. Acetabular position is satisfactory. Stem position is satisfactory. Leg lengths appear appropriate. There is no evidence of fracture or implant failure. IMPRESSION: Status postRight total hip arthroplasty for fracture PLAN: At this point, the patient is doing extremely well following their total hip arthroplasty. I encouraged them to continue a home exercise and walking program. We discussed activity modification, dental prophylaxis, and the importance of long-term follow-up. I encouraged the patient to continue home walking program. She appears to be recovering well from surgery. She had coughing episode which caused her to have significant increased pain. She was seen by Mr. Hanson and it was felt to be radicular. She had a Medrol Dosepak and this improved her overall symptom profile. I see no evidence of failure of her total hip arthroplasty. I encouraged them to return to the office periodically for routine follow-up; sooner if any issues arise. I attempted to answer all of their questions today in the office. [facility] speech recognition chrome plater helper software was used to create portions of this document. An attempt at proofreading has been made to minimize errors. Please call for corrections. Not available 06/27/2024 15:58:20 Plan of Treatment Reminders Order Date Submit Date Provider Last Modified By Organization Details Last Modified Time Details Appointments None recorded. Lab None recorded. Referral physical therapist referral - PT- Lumbago s/p R THR 03/06/24- Lumbar stabiliza tion program 2024 025 [email or web address] Not available 11:00:00 pain managemen t referral - PT- Lumbago s/p R THR 03/06/24- eval and treat LBP 2024 025 elvia [facility], [address], [place], [address], 5 11:00:00 physical therapist referral - DX: RTHR EVAL AND TX: RIGHT THR PROTOCOL AND STRETCHES 2-3 times/wee k 4-6 weeks 2023 024 [email or web address] Not available 4 08:27:02 Procedures None recorded. Surgeries None recorded. Imaging XR, hip + pelvis, unilatera l, 2 or 3 view - RM 313 RTHR SJK 2023 024 [facility], [address], [place], [address], 4 14:47:45 XR, hip + pelvis, unilatera l, 2 or 3 view - 2v right THR global first po ROOM 313 2023 024 alison [facility], [address], [address], [place], [address], 4 11:28:45 Medication Orders prednison e 10 mg tablets in a dose pack 2024 025 [id number], [address] [place] [address], [address], 5 10:50:51 Patient TargetsNo targets recorded. Patient InstructionsNo instructions recorded. Reason for Referral Physical Therapist Referral for Hip joint prosthesis present DX: RTHR EVAL AND TX: RIGHT THR PROTOCOL AND STRETCHES2-3 times/week4-6 weeks Referring Physician: Oscar Deng, Orthopedic Surgery, [id number] Encounter Date: 03/23/2024 Physical Therapist Referral for Acute back pain with sciatica PT- Lumbago s/p R THR 03/06/24- Lumbar stabilization program PT- Lumbago s/p R THR 03/06/24- Lumbar stabilization program Referring Physician: Dylan Hanson, Orthopedic Surgery, Encounter Date: 06/09/2024 Pain Management Referral for Acute back pain with sciatica PT- Lumbago s/p R THR 03/06/24- eval and treat LBP PT- Lumbago s/p R THR 03/06/24- eval and treat LBP Referring Physician: Dylan Hanson, Orthopedic Surgery, Encounter Date: 06/09/2024 Results Created Date Observation Date Name Description Value Unit Range Abnormal Flag Note LastModifiedBy Organization Detail LastModifiedTime 03/23/2003/23/2024 XR, hip + pelvi s, unila teral , 2 or 3 view http:/ [email or web address] ?Encry pted=s hAaTro YD8dLq bEUv6g %2BXZw aYqtaq 0bqfl% 2Fg9IQ a4ajBk vP9nXo QUaueC m3YtLR FvZlgJ JJ8mAn HZtai3 1g7967 AC0Kqa 3qAWKW vKiQtr MwF INTERFACE [facility] [address], [place], [address], 03/23/2024 09:31:23 03/23/20 24 03/23/2024 XR, hip + pelvi s, unila teral , 2 or 3 view [email or web address]:/ [email or web address] ?Encry pted=s hAaTro YD8dLq bEUv6g %2BXZw aYqtaq 0bqfl% 2Fg9IQ a4ajBk vP9nXo QUaueC m3YtLR FvZlgJ JJ8mAn HZtai3 0f9405 AC0Kqa 3qAWKW vKiQtr MwF INTERFACE [facility] [address], [place], [address], 03/23/2024 09:31:25 04/03/20 24 04/03/2024 XR, hip + pelvi s, unila teral , 2 or 3 view [email or web address]:/ [email or web address] ?Encry pted=s hAaTro YD8dLq bEUv6g %2BXZw aYqtaq 0bqfl% 2Fg9IQ a4ajBk vP9nXo QUaueC m3YtLR FvZlgJ JJ8mAn HZtai3 6d7976 AC0Kqa H%2BGU aSgKiQ trMwF INTERFACE [facility] [address] [facility] [address], [place], [address], 04/03/2024 14:32:29 04/03/20 24 04/03/2024 XR, hip + pelvi s, unila teral , 2 or 3 view http:/ [email or web address] ?Encry pted=s hAaTro YD8dLq bEUv6g %2BXZw aYqtaq 0bqfl% 2Fg9IQ a4ajBk vP9nXo QUaueC m3YtLR FvZlgJ JJ8mAn HZtai3 1i4128 AC0Kqa H%2BGU aSgKiQ trMwF INTERFACE [facility] [address], [address], 04/03/2024 14:32:31 Result Notes Documentation Provider Name and Address Organization Details Recorded Time Xr, Hip + Pelvis, Unilateral, 2 Or 3 View : [email or web address] Encrypted=ygWrCelYG1wRggI Uv6g%3ZZHtzFjbev0axqv%2Fg 8NQz1ieZssI2yUvABvvkAn3Qy CNIyJazSIR0oMrUPnkx71b533 0WA7Yde5sQFTRmZhOjnUsZ Not Available [facility] 03/23/2024 09:31: 24 Xr, Hip + Pelvis, Unilateral, 2 Or 3 View : [email or web address] Encrypted=mhKqNrzMW2aQxgA Uv6g%7CBIufHxhth1hgyd%2Fg 5FWi4mcLgtV1dCwTOfgoBk3Ho YLVjTeqBCV1iGxTKwjb89y815 9XD6Wjt2eRZHWhBxEikMxK Not Available [facility] 03/23/2024 09:31: 26 Xr, Hip + Pelvis, Unilateral, 2 Or 3 View : [email or web address]? Encrypted=ziQyWzfNO7fTonR Uv6g%1YHMlvLhplm8minr%2Fg 1EXx7ksEvoN3wNvOMqgqZh7Pf OCDeAkcGWR0pBoSQxkb00f949 7SP8VyoM%2BGUaSgKiQtrMwF Not Available [facility] 04/03/2024 14:3 2:30 Xr, Hip + Pelvis, Unilateral, 2 Or 3 View : [email or web address] Encrypted=ceYsKlrST6wVelK Uv6g%3PWShiHcfct8vwco%2Fg 0XFi3fwMkuR3hKlALedtGs3Mu PCEePhhCYN0wLtOHllk88y496 3TW2RulJ%2BGUaSgKiQtrMwF Not Available [facility] 04/03/2024 14:3 2:32 Medical Equipment None Reported. Allergies Allergen ID Allergen Name Allergen Category Reaction Reaction Severity Criticality Documentation Date Start Date Code Code System Note Provider Name and Address Organization Details Recorded Time 071388 Dilantin medicatio n Not available Not available Not available 06/27/2024 0 RxNorm Tanika patterson [place] - [place] [facility] 10:49:12 571815 Tegretol medicatio n Not available Not available Not available 06/27/2024 9 RxNorm PAPITO José [facility] 10:49:17 Medications Name Sig Start Date Stop Date Status Note LastModified by Organization Details LastModified Time prednisone 10 mg tablet 06/27 completed Not Available Not Available Not Available meclizine 12.5 mg tablet TAKE 1 TABLET (12.5 MG TOTAL) BY MOUTH 3 (THREE) TIMES A DAY IF NEEDED FOR DIZZINESS . active Not Available Not Available No t Available amlodipine 5 mg tablet TAKE 1 TABLET BY MOUTH EVERY DAY 06/27 completed Not Available Not Available Not Available prednisone 10 mg tablets in a dose pack as directed 6 GEy2xpgy, 5 AXp9huqd, 4 PO x2days, 3 JWp1asbh, 2 ZKu2jnhb, 1 TIe2tnoz 06/27 completed Not Available Not Available Not Available meclizine 25 mg tablet TAKE 1 TABLET BY MOUTH 3 TIMES PER DAY FOR 7 DAYS NEEDED FOR DIZZINESS 06/27 completed Not Available Not Available Not Available benzonatate 100 mg capsule TAKE 1 CAPSULE BY MOUTH THREE TIMES A DAY FOR COUGH FOR 7 DAYS 06/27 completed Not Available Not Available Not Available [...] HOURS NEEDED FOR PAIN FOR 3 DAYS 06/27 completed Not Available Not Available Not Available enoxaparin 60 mg/0.6 mL subcutaneou s syringe INJECT 60 MG DIRECTED 2 TIMES DAILY. PLEASE DISPENSE 10 SYRINGES OF 60MG. 06/27 completed Not Available Not Available Not Available sodium,pota ssium,mag sulfates 17.5 gram-3.13 gram-1.6 gram oral soln TAKE 177 ML BY MOUTH SEE ADMIN INSTRUCTI ONS FOR 2 DOSES. 06/27 completed Not Available Not Available Not Available Vitals Date Recorded Body height Body mass index (BMI) Body weight Provider Name and Address Organization Details Last Updated DateTime 06/09/2024 160.02 cm 27.5 kg/m2 12772.82 g AFRICA RICHARDS [place] [facility] 06/09/2024 10:26:23 Date Recorded Body height Body mass index (BMI) Body weight Provider Name and Address Organization Details Last Updated DateTime 06/27/2024 160.02 cm 27.5 kg/m2 65088.82 g Tanika [facility] 06/27/2024 10:48:47 Date Recorded Body height Body mass index (BMI) Body weight Provider Name and Address Organization Details Last Updated DateTime 04/03/2024 160.02 cm 27.5 kg/m2 23244.82 g Treva [facility] 04/03/2024 14:20:13 Social History None recorded. Functional Status None recorded. Mental Status None recorded. Family History Nothing Reported. Medical History No medical history recorded. Gynecological HistoryNo gynecological history recorded. Obstetrics History GPAL:G 0 P 0 0 0 0 Past Encounters Encounter ID Performer Location Encounter Start Date Encounter Closed Date Diagnosis/Indication Diagnosis SNOMED-CT Code Diagnosis ICD10 Code Diagnosis IMO Codes Diagnosis Note [id number] HO Hughes [address] [place] [address] 03/23/2024 09:12:17 04/17/2024 16:20:36 Aftercare 458858652 Z51.89 Hip joint prosthesis present 239241522 Z96.455 [id number] HO Stevens [address] [place] [address] 04/03/2024 13:56:44 04/26/2024 13:27:23 History of repair of hip joint 601908328 Z96.272 [id number] HO Rendon [facility] [address] [place] [address] 06/09/2024 09:46:03 06/26/2024 11:00:00 Acute back pain with sciatica 883812996 M54.41 [id number] MD KAYLENE Haider [facility] [address] [place] [address] 06/27/2024 10:38:23 07/06/2024 15:52:10 History of total replacement of right hip joint 6250779116 60608 Z96.641 [id number] Health Concerns Section Related Observation LastModified by Organization Detai ls LastModified Time None Recorded Concern Status LastModified by Organization Details LastModified Time None Recorded Advance Directives Directive None Recorded Payers Insurance Date Sequence Insurance Name Policy Number Policy Mendez Covered Member ID Mendez Member ID Guarantor Name 07/06/2024 2 [place] [id number] Annabelle Harris [id number] Annabelle Mainsimon 06/27/2024 1 [place] [employer] Annabelle Pantoja Steven [id number] Annabelle Steven Notes Date Note Type Note Provider Name and Address Organization Details Recorded Time 04/03/2024 text/html I am seeing the patient today under the supervision of Dr. Fonseca was available but who did not see the patient. HISTORY OF PRESENT ILLNESS The patient presents today for a follow-up, now four weeks status post Right total hip arthroplasty.Progre ssing very nicely, very happy with the results. No significant complaints of pain. No neurovascular changes. PAST MEDICAL/SURGICAL HISTORY Reviewed today, otherwise unchanged per intake sheet. REVIEW OF SYSTEMS Systemic: No fever and no chills. PHYSICAL FINDINGS General Appearance: Well developed. In no acute distress. Musculoskeletal System: Hips: Left Hip: Hip was not tender on palpation. No pain was elicited by active motion. No pain was elicited by passive motion. Lower Leg: General/bilateral: Calves of both lower legs were not tender on palpation. Neurological: Oriented to time, place, and person. Gait And Stance: Normal. Psychiatric: Mood was appropriate to the affect. Skin: Skin: physical exam of the hip reveals the incision to be healing well, no erythema or drainage, no evidence of infection. Normal sensation bilateral lower extremities. Contralateral side shows no warmth, erythema, soft tissue swelling, or effusion. Full range of motion, 5/5 strength in all muscle groups, and no evidence of instability TESTS X-rays ordered, obtained and reviewed today at [facility], two views, reveal maintained alignment of the prosthetic components, No fracture or dislocation . Excellent interface. No change compared to previous radiographs. ASSESSMENT Progressing nicely four weeks status post Right total hip arthroplasty. PLAN The patient is going to continue total hip precautions.Continu e to monitor for any evidence of infection. Follow-up at the 3 month follow-up, sooner if there are any complications. Pau Posada PA-C [address] [facility] [address], [place], [address], [facility] - [place] [facility] 04/03/2024 14:44:04 OBGyn Episode No OBEpisode recorded.
== END 2025-03-21 11:59 | disposition home or self-care (01) ==
LOC: HO.RHES 11:25
PROVIDERS: PCP Internal Medicine; Visit Provider Student in an Organized Health Care Education/Training Program
DX: M32.9 Systemic lupus erythematosus, unspecified (principal); M81.0 Age-related osteoporosis without current pathological fracture; M19.041 Primary osteoarthritis, right hand; M19.042 Primary osteoarthritis, left hand; D68.62 Lupus anticoagulant syndrome; Z79.899 Other long term (current) drug therapy
CPT/HCPCS: 99215; G2211

== ENCOUNTER → 2025-03-21 11:25 | Outpatient (BNVA) | payer MEDICARE, BC, SELFPAY | PROVIDERS: PCP Internal Medicine; Visit Provider Student in an Organized Health Care Education/Training Program | DX: M32.9 Systemic lupus erythematosus, unspecified (principal); D68.62 Lupus anticoagulant syndrome; M81.0 Age-related osteoporosis without current pathological fracture; M19.041 Primary osteoarthritis, right hand; M19.042 Primary osteoarthritis, left hand; Z79.899 Other long term (current) drug therapy | CPT/HCPCS: 99212 ==

== ENCOUNTER 2025-05-18 14:31 | Outpatient (AMB) | payer MEDICARE, BC, SELFPAY ==
--- OUTSIDE RECORDS SUMMARY | 2025-05-01 10:30 | XMS_ITS | Encounter Summary ---
Author Organization [facility] Address [address] [place] [address] Care Team Providers Care Preschool Teacher Assistant Name Role Phone Italo Romero MD Primary Care Provider [phone] Reason for Visit * Reason Comments Anticoagulation Encounter Details Date Type Department Care Team (Latest Contact Info) Description 05/01/2025 10:30 AM EST Clinical Support Cou[facility]in Clinic [address] [address] Antiphospholipid antibody with hypercoagulable state (CMS/HCC V24) (Primary Dx); Chronic deep vein thrombosis (DVT) of right lower extremity, unspecified vein (CMS/HCC V24, CMS/HCC V28) Social History Tobacco Use Types Packs/Day Years Used Date Smoking Tobacco: Some Days Cigarettes Smokeless Tobacco: Current Alcohol Use Standard Drinks/Week Comments Yes 0 (1 standard drink = 0.6 oz pur e alcohol) wine occ Housing Instability Answer Date Recorde d Are you worried that in the next 2 months you may not have stable housing? No 05/17/2025 Access to Healthcare Answer Date Record ed Within the last 3 months, ho w many times did you visit the emergency department for your medical care? 0 05/17/2025 Health Literacy Answer Date Recorded How often do you need to hav e someone help you when you read instructions, pamphlets, or other written material from your doctor or pharmacy? Never 05/17/2025 Caregiver: How often do you need to have someone help you when you read instructions, pamphlets, or other written material from your doctor or pharmacy? Not on file 05/17/2025 Financial Risk Answer Date Recorded How hard is it for you to pa y for the very basics like food, housing, medical care, and air conditioning / heating? Not very hard 05/17/2025 Transportation Answer Date Recorded Has the lack of transportati on kept you from meetings, work, or from getting things needed for daily living? No Has the lack of transportati on kept you from medical appointments or from getting medications? No 05/17/2025 Social Isolation Answer Date Recorded How often do you feel lonely or isolated from th ose around you? Never 05/17/2025 Food Risk Answer Date Recorded Within the past 12 months we worried whether our food would run out before we got money to buy more. Never true 05/17/2025 Within the past 12 months th e food we bought just didn't last and we didn't have money to get more. Never true 05/17/2025 Dependent Care Answer Date Recorded Do you need help finding or paying for care for your loved ones. For example, child day care center worker or elderly care for an older adult? No 05/17/2025 Education Answer Date Recorded Do you think completing more education or training, like finishing a GED, going to college, or learning a trade, would be helpful for you? No 05/17/2025 Employment and Income Answer Date Recor ded During the last four weeks, have you been actively looking for work? No 05/17/2025 Living Situation Answer Date Recorded What is your living situation? Unrecognized valu e 05/17/2025 Comments No Sex and Gender Information Value Date Recorded Sex Assigned at Female 06/21/2024 9:34 AM EST Legal Sex Female 11:39 PM EST Gender Identity Female 06/21/2024 9:34 AM EST Sexual Orientation Straight 06/21/2024 9: 34 AM EST documented as of this encounter Progress Notes * Mandi Tyler LPN - 05/01/2025 10:30 AM EST Anticoagulation Summary As of 05/01/2025 INR goal: 2.5-3.5 TTR: 69.7% (1 y) INR used for dosin.2 (05/01/2025) Warfarin maintenance plan: 5 mg (5 mg x 1) every Mon, Wed, Fri; 2.5 mg (5 mg x 0.5) all other days Weekly warfarin total: 25 mg No change documented: Mandi Tyler LPN Plan last modified: Mandi Tyler LPN (03/27/2025) Next INR check: 05/29/2025 Target end date: -- Indications Antiphospholipid antibody with hypercoagulable state (CMS/[facility] V24) [D68.61] Chronic deep vein thrombosis of right lower extremity (CMS/[facility] V24 CMS/[facility] V28) [I82.501] Anticoagulation Episode Summary INR check location: Anticoagulation Clinic Preferred lab: -- Send INR reminders to: [facility] [place] [place] Comments: -- Anticoagulation Care Providers Provider Role Specialty Phone number Italo Romero MD [facility] [phone] Patient presents for follow-up of ongoing Warfarin therapy. Patient had her INR drawn via A/C Clinic Draw. Patient denies any significant issues with adherence to the medication regimen. Patient denies experiencing any symptoms of bleeding, such as unusual bruising, nosebleeds, hematuria, or melena. Patient reports feeling generally well and denies any new complaints. Plan of care: New warfarin dose: No change Warfarin education of dietary considerations, medication/supplement interactions, and the need to continue avoiding activities that increase the risk of injury or bleeding reinforced. Patient verbalized understanding of ongoing INR monitoring and dosage change. Patient is aware of the signs of potential complications and knows to contact the clinic if they occur. Anticoagulation Flowsheet updated with new plan of care. Plan discussed with provider, no additional changes at this time. Anticoagulation Clinic Protocol Dose Type Dose Range INR Dose Adjustment # Doses Omitted Recheck Date Mini Dose 1.4-2.0 Very Low <1.2 Consult Provider 0 1 week Low 1.2-1.4 If singular event - no change If 2 in a row or 2 of the last 3 - Increase weekly dose by 10% 0 1 week In Range 1.4-2.0 No adjustment 0 1-4 weeks* High 2.0-3.0 If singular event - no change If 2 in a row or 2 of the last 3 - Decrease weekly dose by 10% 0 1 week Very High >3.0 Consult Provider 2 2 days If OK after 2 days - Decrease weekly dose by 10% 0 1 week Usual Dose 2.0-3.0 Very Low <1.5 Consult Provider 0 1 week Low 1.5-2.0 If singular event - No change If 2 in a row or 2 of the last 3 - Increase weekly dose by 10% 0 1 week In Range 2.0-3.0 No Adjustment 0 1-4 weeks* High >3.0-3.5 If singular event - No change If 2 in a row or 2 of the last 3 - Decrease weekly dose by 10% 0 1 week Very High >3.5-4.0 Consult Provider 1 2 days >4.0 Consult Provider 2 2 days If OK after 2 days - Decrease weekly dose by 10% 0 1 week Mechanical Valve 2.5-3.5 Very Low <1.5 Consult Provider 0 1 week Low 1.5-2.5 If singular event - No change If 2 in a row or 2 of the last 3 - Increase weekly dose by 10% 0 1 week In Range 2.5-3.5 No Adjustment 0 1-4 weeks* High >3.5-4.0 If singular event - No change If 2 in a row or 2 of the last 3 - Decrease weekly dose by 10% 0 1 week Very High >4.0-4.9 Consult Provider 1 2 days >5.0 Consult Provider 2 2 days If OK after 2 days - Decrease weekly dose by 10% 0 1 week * In range 1 week = recheck in 1 week In range 2 weeks = recheck in 2 weeks In range 3 weeks = recheck in 3 weeks In range 4 weeks = recheck in 4 weeks Cosigned by Italo Romero MD at 05/01/2025 11:00 AM EST documented in this encounter Plan of Treatment Upcoming Encounters Date Type Department Care Team (Late st Contact Info) Description 05/29/2025 10:15 AM EST Clinical Support Coumadin Clinic - [address] [address] 09/10/2025 1:20 PM EDT Appointment Radiology Department - [address] [place] [address] documented as of this encounter Procedures Procedure Name Priority Date/Time Associated Diagnosis Comments POC PROTIME INR BLOOD Routine 05/01/2025 10:07 AM EST Antiphospholipid antibody with hypercoagulable state ([facility] V24) Chronic deep vein thrombosis (DVT) of right lower extremity, unspecified vein ([facility] V24, CMS/[facility] V28) documented in this encounter Results * POC Protime INR Blood (05/01/2025 10:07 AM EST) Lot Number INR POC 3.2 Prothrombin Time POC Exp Date Blood 05/01/2025 10:0 7 AM EST Italo Romero MD POINT OF CARE TEST ENTER/ED IT ORDERABLES Final Result documented in this encounter Visit Diagnoses Diagnosis Antiphospholipid antibody with hypercoagulable state ([facility] V24)- Primary Chronic deep vein thrombosis (DVT) of right lower extremity, unspecified vein ([facility] V24, CMS/[facility] V28) documented in this encounter Care Teams Preschool Teacher Assistant Relationship Specialty Start Date End Date Italo Romero MD [address] [place] [address] PCP - General Internal Medicine 11/24/21 documented as of this encounter
--- OUTSIDE RECORDS SUMMARY | 2025-05-17 12:30 | XMS_ITS | Encounter Summary ---
Author Organization [facility] Address [address] [place] [address] Care Team Providers Care Mine Engineering Manager Name Role Phone Italo Romero MD Primary Care Provider [phone] Reason for Visit * Reason Comments Chronic Care Visit (CCV) Encounter Details Date Type Department Care Team (Late st Contact Info) Description 05/17/2025 12:30 PM EST Office Visit Adult Medicine [address] [phone] Italo Romero MD [address] [place] [address] Primary hypertension (Primary Dx); Moderate mitral regurgitation; Antiphospholipid antibody with hypercoagulable state ([facility] V24); Systemic lupus erythematosus, unspecified SLE type, unspecified organ involvement status ([facility] V24, [facility] V28); Rheumatoid arthritis involving multiple sites, unspecified whether rheumatoid factor present ([facility] V24, [facility] V28); Age-related osteoporosis without current pathological fracture; Warthin's tumor; Screening for hyperlipidemia; Screening for thyroid disorder; Screening for deficiency anemia; Screening for diabetes mellitus (DM) Social History Tobacco Use Types Packs/Day Years Used Date Smoking Tobacco: Some Days Cigarettes Smokeless Tobacco: Current Tobacco Cessation:Ready to Q uit: Not Asked; Counseling Given: Not Answered Alcohol Use Standard Drinks/Week Comments Yes 0 [...] for your loved ones. For example, child welfare caseworker or elderly care for an older adult? [...] AM EST documented as of this encounter Last Filed Vital Signs Vital Sign Reading Time Taken Comments Blood Pressure 136/70 05/17/2025 1:05 PM EST Pulse 63 05/17/2025 12:34 PM EST Temperature 36.4 C (97.5 F) 05/17/2025 12:34 PM EST Respiratory Rate 16 05/17/2025 12:34 PM EST Oxygen Saturation 95% 05/17/2025 12:34 PM EST Inhaled Oxygen Concentration - - Weight 66.2 kg (146 lb) 05/17/2025 12:34 PM EST Height - - Body Mass Index 22.87 03/02/2025 11:34 AM EDT documented in this encounter Ordered Prescriptions Prescription Sig Dispense Quantity Refills Last Filled Start Date End Date metoprolol succinate (TOPROL-XL) 25 mg 24 hr tablet Take 1 tablet (25 mg total) by mouth 1 (one) time each day. 90 tablet 1 05/17/2025 amoxicillin (AMOXIL) 500 mg capsule Take 4 capsules (2,000 mg total) by mouth 1 (one) time for 1 dose. Take 1 hour prior to procedure. 4 each 05/17/2025 5 documented in this encounter Progress Notes * Italo Romero MD - 05/17/2025 12:30 PM EST Patient is recommended lifestyle changes including 2 g sodium diet and regular exercise as tolerated. Patient is advised to check BP at home and maintain a BP log. Your goal is to maintain blood pressure less than 130/80. Please call our office if blood pressure more than 140/90, more than a coupleof times * Italo Romero MD - 05/17/2025 12:30 PM EST CHIEF COMPLAINT: Chronic Care Visit (CCV) IDENTIFIER: Annabelle Harris is a 75 y.o. old female. HPI: 75-year-old female patient with a past medical history of SLE for more than 30 years, Warthin's tumor left parotid, Jaccoud's arthritis/rheumatoid arthritis, antiphospholipid syndrome on Coumadin therapy, osteoporosis, vertigo, frequent PVCs, moderate mitral regurgitation, chronic low backache, right hip replacement surgery and right knee osteoarthritis, who is seen here for chronic care visit. She has stable Warthin's tumor and she was was seen by Dr. Nikko Houser, ENT surgeon at [facility]. She opted for monitoring yearly CAT scan neck with IV contrast, last scan was stable on 10/2024. She denies any pain or swallowing issues at this time. She is on Coumadin therapy for antiphospholipid syndrome. INR is therapeutic, she follows with Coumadin clinic. She follows with dental hygiene professor at [facility] and she takes hydroxychloroquine for SLE.She is up-to-date for eye exam. She is on calcium and vitamin D supplementation for osteoporosis. She has intolerance to Fosamax. She was recently seen by the medical observer for mitral regurgitation, she is completely asymptomatic. She has orthostatic dizziness, systolic blood pressure dropped from 146-136 from lying to standing.I recommended her to drink plenty of liquids, take time while changing positions and cautious when bending or turning neck etc. She is following up with [facility] for low backache. She uses right knee brace for right knee pain due to osteoarthritis. She lives with her and she is fairly active. She would like to enroll her as her healthcare proxy and I have given the healthcare proxy form. I discussed with her about the CODE STATUS and she opted for full code and MOLST form is completed She is fairly active and she does not need any case management referral. Health maintenance is reviewed. Last colonoscopy in 09/2023-status post polypectomy, repeat in 3 years. She is up-to-date for mammogram and bone density scan. She is due for Td vaccine but she is not ready to take Td vaccine today. ROS: GENERAL: No malaise, significant weight loss or fever HEENT: No changes in hearing or vision, nose bleeds or other nasal problems NECK: No lumps RESPIRATORY: No cough, wheezing or shortness of breath CARDIOVASCULAR: No chest pain, or palpitations GI: No abdominal pain, hematochezia, melena : No dysuria, oliguria, polyuria, hematuria, flank pain MUSCULOSKELETAL: Bilateral knee pain right more than the left. Multiple joint pains SKIN: No lesions, rash or itching NEURO: No persistent headache, syncope, seizures, weakness or numbness PAST MEDICAL HISTORY: Patient Active Problem List Diagnosis Date Noted Rheumatoid arthritis involving multiple sites, unspecified whether rheumatoid factor present ([facility] V24, [facility] V28) 05/17/2025 Other chest pain 11/21/2024 Warthin's tumor 11/01/2024 Primary hypertension 11/01/2024 half-way (current) use of anticoagulants 11/01/2024 Antiphospholipid antibody with hypercoagulable state ([facility] V24) 04/12/2024 Chronic deep vein thrombosis of right lower extremity ([facility] V24, [facility] V28) 04/12/2024 History of DVT (deep vein thrombosis) 08/16/2023 Vaginal dryness, menopausal 02/01/2023 Jaccoud's arthritis ([facility] V24, [facility] V28) 03/17/2022 Nonrheumatic mitral valve regurgitation 05/21/2021 Frequent PVCs 2021 Lung nodule 01/02/2021 Primary osteoarthritis of right knee 06/28/2019 Posterior tibial tendon dysfunction (PTTD) of right lower extremity 02/16/2019 Primary osteoarthritis of left ankle 08/17/2018 Seborrheic keratoses, inflamed 11/26/2017 Antiphospholipid syndrome ([facility] V24) 04/24/2017 Osteoporosis 02/24/2015 Osteoarthritis, hand 05/10/2013 Systemic lupus erythematosus, unspecified ([facility] V24, [facility] V28) 04/07/2006 Surgical History[1] SOCIAL HISTORY: Social History Tobacco Use Smoking status: Some Days Types: Cigarettes Smokeless tobacco: Current Substance Use Topics Alcohol use: Yes Comment: wine occ FAMILY HISTORY: Family History[2] Family Status Relation Name Status Mother Father Brother (Not Specified) Son (Not Specified) Neg Hx (Not Specified) Sister Alive Brother lupus/kidney failure No partnership data on file MEDICATIONS DISCONTINUED/REORDERED: Medications Discontinued During This Encounter Medication Reason metoprolol succinate (TOPROL-XL) 25 mg 24 hr tablet Reorder ACTIVE MEDICATIONS: Medications Taking[3] ALLERGIES: Current Allergies[4] PHYSICAL EXAM: Visit Vitals BP 136/70 (Patient Position: Standing) Pulse 63 Temp 36.4 ??C (97.5 ??F) (Temporal) Resp 16 Wt 66.2 kg (146 lb) SpO2 95% BMI 22.87 kg/m?? OB Status Postmenopausal Smoking Status Some Days BSA 1.77 m?? Physical Exam APPEARANCE: Alert and in no acute distress EYES: PERRLA, conjunctiva and sclera normal. EARS: External ears normal. NOSE/SINUS: Nares normal. MOUTH/THROAT: no erythema or exudates Neck: Small swelling about the left parotid/left submandibular area HEART: RRR with normal S1 and S2, no murmurs LUNG: clear to auscultation, no wheezing ABDOMEN: Bowel sounds normoactive, soft, non-tender and no palpable masses. BACK: No pain to palpation EXTREMITIES: No edema NEURO: Awake, alert and oriented x 3. No focal neurological deficits SKIN: No rashes LABS: @CBC@ Lab Results Component Value Date NA 142 02/21/2025 K 4.8 02/21/2025 CL 107 02/21/2025 CO2 30 02/21/2025 GLUCOSE 81 02/21/2025 BUN 23 02/21/2025 CREATININE 0.66 02/21/2025 CALCIUM 9.7 02/21/2025 EGFR 93 02/21/2025 No results found for: HGBA1C No results found for: TSH Lab Results Component Value Date CHOL 190 01/14/2023 TRIG 111 01/14/2023 HDL 80 01/14/2023 LDL 88 01/14/2023 IMAGING: CT neck with contrast on 10/2024-1. Stable known left parotid Warthin's tumor since 03/02/24. 2. No developing cervical lymphadenopathy. IMPRESSION: 1. Primary hypertension 2. Moderate mitral regurgitation 3. Antiphospholipid antibody with hypercoagulable state (CMS/HCC V24) 4. Systemic lupus erythematosus, unspecified SLE type, unspecified organ involvement status (CMS/HCC V24, [facility] V28) 5. Rheumatoid arthritis involving multiple sites, unspecified whether rheumatoid factor present ([facility]/HCC V24, [facility]/H[facility] V28) 6. Age-related osteoporosis without current pathological fracture 7. Warthin's tumor 8. Screening for hyperlipidemia 9. Screening for thyroid disorder 10. Screening for deficiency anemia 11. Screening for diabetes mellitus (DM) PLAN: Her blood pressure is borderline high but she has history of orthostatic dizziness. I recommended her to drink plenty of water and take time while changing positions. For now I will continue current dose of metoprolol XL 25 mg daily. She has moderate mitral regurgitation, asymptomatic and she was seen by the medical observer. Continue Coumadin for history of antiphospholipid syndrome and she attends Coumadin clinic and INR is in therapeutic range She follows dental hygiene professor at [facility] for history of SLE/Ruth arthritis/rheumatoid arthritis. Currently she is on hydroxychloroquine therapy and she follows with eye doctor regularly. She is on calcium and vitamin D supplementation for osteoporosis and she has intolerance to Fosamax. She is hesitant to take Prolia/zoledronate infusions She has stable Warthin's tumor and she was was seen by Dr. Nikko Houser, ENT surgeon at [facility]. She opted for monitoring yearly CAT scan neck with IV contrast, last scan was stableon 10/2024. She denies any pain or swallowing issues at this time. She would like to enroll her as her healthcare proxy and I have given the healthcare proxy form. I discussed with her about the CODE STATUS and she opted for full code and MOLST form is completed. Labs ordered including CBC, CMP, lipid panel, A1c and TSH Follow-up exam in 6 months for med review and annual wellness visit. I have applied the code G2211 to this patient's visit as the primary care provider dealing with multiple comorbid conditions, coordinating with the referrals and health maintenance. All questions and concerns were addressed. Annabelle Harris verbalizes understanding and agrees with this treatment plan. Patient was reminded to call or return to the office if any new or existing problems arise. Orders Placed This Encounter Procedures CBC and differential Comprehensive metabolic panel Lipid panel with reflex to direct LDL Hemoglobin A1c Thyroid stimulating hormone with reflex to free t4 and free t3 Full code - Confirmed FULL CODE CONFIRMED Italo Romero MD on 05/17/2025 at 6:02 PM EST Today's documentation was made using voice recognition software.This note may contain grammatical errors secondary to this software. [1] Past Surgical History: Procedure Laterality Date BREAST BIOPSY Right 2004 PROCEDURE: BX BREAST; PERC NEEDLE CORE W/IMAG GUID; COMMENT: cyst asp CATARACT EXTRACTION 2011 PROCEDURE: HISTORICAL CATARACT REMOVAL FOOT SURGERY Left PROCEDURE: HISTORICAL FOOT SURGERY OTHER SURGICAL HISTORY PROCEDURE: OH LIG/TRNSXJ FLP TUBE ABDL/VAG APPR UNI/BI [2] Family History Problem Relation Name Age of Onset Diabetes Mother Heart attack Mother Heart attack Father Colon cancer Father later in life Other (Other: lupus) Brother chrons Hypertension Son Other (Other: prediabetic) Son Breast cancer Neg Hx [3] Outpatient Medications Marked as Taking for the 05/17/25 encounter (Office Visit) with Italo Romero MD Medication Sig Dispense Refill calcium carbonate-vit D3-min 600 mg-10 mcg (400 unit) tablet Take 1 tablet by mouth 2 (two) times aday. calcium carbonate-vitamin D3 600 mg-5 mcg (200 unit) per tablet 1 tab bid hydroxychloroquine (PLAQUENIL) 200 mg tablet metoprolol succinate (TOPROL-XL) 25 mg 24 hr tablet Take 1 tablet (25 mg total) by mouth 1 (one) time each day. 90 tablet 1 MULTIVITAMIN ORAL 1 tab daily warfarin (COUMADIN) 5 mg tablet Take 1 tablet (5 mg total) by mouth 1 (one) time each day. 90 tablet 1 [DISCONTINUED] metoprolol succinate (TOPROL-XL) 25 mg 24 hr tablet Take 1 tablet (25 mg total) by mouth 1 (one) time each day. 90 tablet 1 [4] Allergies Allergen Reactions Carbamazepine Phenytoin Sodium documented in this encounter Plan of Treatment Upcoming Encounters Date Type Department Care Team (Late st Contact Info) Description 05/29/2025 10:15 AM EST Clinical Support [facility] - [address] [address] 09/10/2025 1:20 PM EDT Appointment Radiology Department - [address] [address] Scheduled Orders Name Type Priority Associated Diagnoses Orde r Schedule CBC and differential Lab Routine Primary hypertension Moderate mitral regurgitation Antiphospholipid antibody with hypercoagulable state (CMS/HCC V24) Systemic lupus erythematosus, unspecified SLE type, unspecified organ involvement status (CMS/HCC V24, [facility]/HCC V28) Rheumatoid arthritis involving multiple sites, unspecified whether rheumatoid factor present ([facility] V24, [facility] V28) Age-related osteoporosis without current pathological fracture Screening for hyperlipidemia Screening for thyroid disorder Screening for deficiency anemia Screening for diabetes mellitus (DM) 1 Occurrences starting 05/17/2025 until 05/17/2026 Comprehensive metabolic panel Lab Routine Primary hypertension Moderate mitral regurgitation Antiphospholipid antibody with hypercoagulable state ([facility] V24) Systemic lupus erythematosus, unspecified SLE type, unspecified organ involvement status ([facility] V24, [facility] V28) Rheumatoid arthritis involving multiple sites, unspecified whether rheumatoid factor present ([facility] V24, [facility] V28) Age-related osteoporosis without current pathological fracture Screening for hyperlipidemia Screening for thyroid disorder Screening for deficiency anemia Screening for diabetes mellitus (DM) 1 Occurrences starting 05/17/2025 until 05/17/2026 Lipid panel with reflex to direct LDL Lab Routine Primary hypertension Moderate mitral regurgitation Antiphospholipid antibody with hypercoagulable state ([facility] V24) Systemic lupus erythematosus, unspecified SLE type, unspecified organ involvement status ([facility] V24, [facility] V28) Rheumatoid arthritis involving multiple sites, unspecified whether rheumatoid factor present ([facility] V24, [facility] V28) Age-related osteoporosis without current pathological fracture Screening for hyperlipidemia Screening for thyroid disorder Screening for deficiency anemia Screening for diabetes mellitus (DM) 1 Occurrences starting 05/17/2025 until 05/17/2026 Hemoglobin A1c Lab Routine Primary hypertension Moderate mitral regurgitation Antiphospholipid antibody with hypercoagulable state ([facility] V24) Systemic lupus erythematosus, unspecified SLE type, unspecified organ involvement status ([facility] V24, [facility] V28) Rheumatoid arthritis involving multiple sites, unspecified whether rheumatoid factor present ([facility] V24, [facility] V28) Age-related osteoporosis without current pathological fracture Screening for hyperlipidemia Screening for thyroid disorder Screening for deficiency anemia Screening for diabetes mellitus (DM) 1 Occurrences starting 05/17/2025 until 05/17/2026 Thyroid stimulating hormone with reflex to free t4 and free t3 Lab Routine Primary hypertension Moderate mitral regurgitation Antiphospholipid antibody with hypercoagulable state ([facility] V24) Systemic lupus erythematosus, unspecified SLE type, unspecified organ involvement status ([facility] V24, [facility] V28) Rheumatoid arthritis involving multiple sites, unspecified whether rheumatoid factor present ([facility] V24, [facility] V28) Age-related osteoporosis without current pathological fracture Screening for hyperlipidemia Screening for thyroid disorder Screening for deficiency anemia Screening for diabetes mellitus (DM) 1 Occurrences starting 05/17/2025 until 05/17/2026 documented as of this encounter Visit Diagnoses Diagnosis Primary hypertension- Primary Unspecified essential hypertension Moderate mitral regurgitation Antiphospholipid antibody with hypercoagulable state ([facility] V24) Systemic lupus erythematosus, unspecified SLE type, unspecified organ involvement status ([facility] V24, [facility] V28) Rheumatoid arthritis involving multiple sites, unspecified whether rheumatoid factor present ([facility] V24, [facility] V28) Age-related osteoporosis without current pathological fracture Warthin's 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 Reorder 11/01/2024 05/17/2025 documented as of this encounter Historical Medications * This list may reflect changes made after this encounter. calcium carbonate-vit D3-min 600 mg-10 mcg (400 unit) tablet Take 1 tablet by mouth 2 (two) times a day. added in this encounter Orders Code Status Count Last Ordered Date First Orde red Date FULL CODE CONFIRMED 1 05/17/2025 documented in this encounter Additional Health Concerns Assessment Noted Time PHQ-9 Depression Total Score: 0 05/17/20 25 12:36 PM EST documented as of this encounter Care Teams Mine Engineering Manager Relationship Specialty Start Date End Date Italo Romero MD [address] [place] [address] PCP - General Internal Medicine 11/24/21 documented as of this encounter
--- NOTE | 2025-05-18 15:04 | A.OFFVIS_ITS ---
Vital Signs 05/18/25 15:13 Height 5 ft 7 in Weight 146 lb 9.718 oz BMI 23.0 BP 140/78 H Blood Pressure Location Lt brachial Position Sitting Pulse 68 Pulse Source Pulse Oximeter Pulse Oximetry (%) 98 Oxygen Delivery Method Room Air Intake Visit Reasons: discuss therapies Intake Note: Patient presents today for SLE follow up and to discuss therapies. 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 - No significant complaints Today - On hydroxychloroquine 200 mg daily and warfarin 5 mg daily. - patient had bone density report reviewed (11/2024 done at outside facility) this showed a 7% decrease in her bone density of the spine when compared to 04/2020 - at the last visit patient did not want to pursue any further bone strengthening agents however given the recent right hip fracture and the worsening bone density of the spine it is prudent that she start medications so she is here today to discuss therapeutic options - She has severe osteoporosis, confirmed by a recent bone density scan showing worsening numbers, especially in the spine, and a recent fragility fracture of the right hip. - The hip fracture occurred from a fall which she attributes to vertigo, and her recovery took a full year due to residual wobbliness and issues with her back and spine. - Her osteoporosis is partially attributed to prior prednisone use. - The patient has a history of medication intolerance; she previously tried alendronate (Fosamax) and experienced side effects, and also had adverse reactions to blood pressure medications that caused falls. - She is hesitant to start long-acting osteoporosis treatments like Prolia or Reclast due to fear of side effects that she cannot quickly reverse. - Her existing symptoms include muscle aches, bone aches, arthritis aches, and extreme fatigue, which mirror the potential side effects of the osteoporosis medications, causing her significant concern. - Relevant past medical history includes lupus and TMJ issues. - She continues to experience menopausal hot flashes at age 75. 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 Birch 03/2023: The patient returns for evaluation of her SLE and history of antiphospholipid syndrome. She remains on hydroxychloroquine 200 mg daily and warfarin. She has not had any recent blood clots. She gets occasional pain in the right foot, lower back, in the hands. She does have a hand surgery appointment; she has noted some thickening in the palm of the right hand. Occasionally there is pain at the right 3rd PIP but most of the time the hands are not painful. She remains on metoprolol for palpitations. There have been no recent problems with sun sensitivity, skin rashes, oral ulcers, chest pain or abdominal pain. We had a discussion last time about treatment of her osteoporosis with IV zoledronic acid but she still is not wishing to proceed with that. Current Rheumatology Medication(s): Hydroxychloroquine 200mg daily [facility] Medical History (Updated 03/22/25 @ 10:08 by Zo Balbuena MD) Vertigo Warthin tumor SLE (systemic lupus erythematosus related syndrome) Osteoporosis History of DVT (deep vein thrombosis) Osteoarthritis Surgical History History of right hip replacement S/P foot surgery, left Hx of cataract extraction Family History Mother Diabetes Myocardial infarction Father Myocardial infarction Colon cancer Brother Lupus History of Crohn's disease Kidney failure, acute Social History Alcohol intake: current Alcohol intake frequency: holidays/special occasions only Alcohol type: wine Patient Tobacco Use Status: Current someday Tobacco user Current occupational status: previously employed 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 - Musculoskeletal: Reports muscle aches, bone aches, and arthritis aches. - Neurological: Reports a history of vertigo and feeling wobbly. - Endocrine: Reports persistent hot flashes. - Head/Mouth: Reports TMJ issues. All other systems reviewed and are unremarkable except noted above Physical Exam Exam Exam: Vital signs reviewed Physical Examination CONSTITUITIONAL Patient alert and cooperative. Well appearing and in no apparent painful distress MSK Hands * Right Hand: Not able to make a fist. No swelling or tenderness to palpation of the MCPs, PIPs or DIPs. * Left Hand: Not able to make a fist. No swelling or tenderness to palpation of the MCPs, PIPs or DIPs. 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 No swelling or TTP * Left Wrist: Full ROM to flexion and extension. No swelling or TTP Elbows * Right Elbow: Full ROM. No swelling or TTP. No TTP of the medial epicondyle. No TTP of the lateral epicondyle * Left Elbow: Full ROM. No swelling or TTP. No TTP of the medial epicondyle. No TTP of the lateral epicondyle Shoulders * Right shoulder: No swelling noted. No TTP of the AC joint. No TTP of the subacromial bursa. No TTP of the posterior shoulder * Left shoulder: No swelling noted. No TTP of the AC joint. No TTP of the subacromial bursa. No TTP of the posterior shoulder Knees * Right knee: Full ROM. No swelling noted. No TTP of the knee joint line. No TTP of pes anserine bursa * Left knee: Full ROM. No swelling noted. No TTP of the knee joint line. No TTP of pes anserine bursa. * Crepitations felt bilaterally Ankles * Right ankle: Good ankle dorsiflexion and plantar flexion. No swelling. No TTP of the ankle joint * Left ankle: Good ankle dorsiflexion and plantar flexion. No swelling. No TTP of the ankle joint Feet * Right foot: Negative squeeze test * Left foot: Negative squeeze test Tender points? * No tenderness to palpation of the bilateral trapezius, supraspinatus, anterior costochondral junctions, bilateral suboccipital muscle insertions SKIN No rashes Vital Signs: Last Vital Signs Pulse 68 05/18/25 15:13 BP 140/78 H 05/18/25 15:13 Pulse Ox 98 05/18/25 15:13 Oxygen Delivery Method Room Air 05/18/25 15:13 BMI result Body Mass Index 23.0 Results Reviewed Results Reviewed: Laboratory Tests 10/22/23 01/18/25 09:10 10:21 WBC 6.7 RBC 3.61 L Hgb 11.7 L Hct 35.0 L Plt Count 249 ESR 17 Sodium 142 Potassium 4.4 Chloride 106 Carbon Dioxide 27 BUN 13 Creatinine 0.70 AST 24 ALT 12 C-Reactive Protein 0.23 25-OH Vitamin D Total 26 L 47.3 Laboratory Tests 10/22/23 09:10 SS-A/Ro Antibody >8.0 POS A Anti-ds DNA Titer (Crith) 1:160 H Anti-ds DNA (Crithidia) Positive A Laboratory Tests 10/22/23 01/18/25 09:10 10:21 Double Strand DNA Ab 5 H Complement C3 110 111 Complement C4 20 21 DEXA 11/2024 L1-L4 BMD: 0.722g/cm2 L1-L4 T Score -3.0 This represents a 7.4% decrease in bone density compared with prior exam from 04/22/2020 Left femoral neck BMD: 0.514 g/cm2 Left femoral neck T score: -3.0. Left total hip BMD: 0.675 g/cm2 Left total hip T score: -2.2 Assessment & Plan Assessment & Plan (1) Osteoporosis: Comment: RT hip fracture Code(s): M81.0 - Age-related osteoporosis without current pathological fracture Category: Medical Qualifiers: Osteoporosis type: age-related Presence of current pathological fracture: without current pathological fracture Qualified Code(s): M81.0 - Age- related osteoporosis without current pathological fracture Plan: #Osteoporosis The patient is a 75 year old female with severe osteoporosis, evidenced by a recent fragility fracture of the right hip and a bone density scan showing worsening bone loss, particularly in the spine. Her risk is increased by her post-menopausal state and history of prednisone use. Multiple treatment options were discussed. Alendronate (Fosamax) was previously trialed and not tolerated. Denosumab (Prolia), a bi-annual injection, was discussed, with the caveat that it is a lifelong therapy, as discontinuation leads to rapid bone loss. Romosozumab (Evenity), a 1-year anabolic treatment, was also mentioned, but requires subsequent treatment with an anti-resorptive agent. Zoledronic acid (Reclast), a once-yearly infusion for five years, was the recommended option. The plan includes checking her kidney function via bloodwork within a week prior to the infusion if she decides to proceed. The patient is hesitant to begin any treatment due to a history of medication intolerance and concern that side effects could worsen her current symptoms of myalgia, arthralgia, and fatigue. She will defer her decision until she returns from travel in mid. We will follow up at that time to discuss her choice. Plan - Plan I met with the patient to discuss her worsening osteoporosis, which was identified on a recent bone density scan, and the necessity of treatment given her recent right hip fracture. I explained that post-menopausal estrogen loss, exacerbated by prior prednisone use, is the underlying cause of her increased bone resorption. We reviewed several therapeutic options, including alendronate (which she did not tolerate), Prolia (which requires lifelong commitment), Evenity (which requires sequential therapy), and Reclast (a yearly infusion for five years). I recommended Reclast as the most suitable option for her. I addressed her concerns about the risk of osteonecrosis of the jaw, clarifying that it is a rare risk with all bone agents, and explained the need for pre-infusion kidney function tests for safety. The patient expressed significant apprehension about initiating treatment, citing a history of medication intolerance and fear of worsening her existing fatigue and body aches. She has chosen to defer her decision until she returns from a trip in , and we will revisit the discussion at that time. I reiterated the significant risks of not treating her severe osteoporosis, including the potential for additional fractures. I spent 40 minutes reviewing the patient's DEXA, discussing the different treatment options and answering questions, and documenting in the medical record Coding Level of Care Code Est Pt Level 5 (57294) Add On Problem Visit Only Diagnoses Age-related osteoporosis without current pathological fracture M81.0 Osteoporosis type: age-related Presence of current pathological fracture: without current pathological fracture
[2025-05-18 15:13] VITALS: BP 140/78; PULSE 68; O2SAT 98; BMI 23.0
--- OUTSIDE RECORDS SUMMARY | 2025-05-18 19:46 | XMS_ITS | Data Portability ---
Author Organization [place] - [facility], [facility] Address [address] [place] [address] Care Team Providers Care Software Quality Assurance Specialist Name Role Phone ANITA HENDRICKS Primary Care [...] X-rays ordered, obtained, and reviews today at [facility], two views, reveal maintained alignment of the [...] back, does not currently follow with any demolition specialist. She denies any fall or trauma. [...] motion. X-rays ordered, obtained and reviewed at [facility] 2 views of the right hip reveals cement was right total hip arthroplasty. No evidence of periprosthetic fracture or loosening. 2 views lumbar spine revealed diffuse degenerative changes, no definitive fracture identified. No spondylo-or retrolisthesis noted. Impression: Lumbar radiculopathy with degenerative disc disease Plan: Treatment options are discussed. Patient started on a prednisone taper. She will be referred to a demolition specialist for evaluation. He was also referred to therapy for lumbar stabilization program. Total hip precautions are discussed patient currently doing well in this regard currently. [facility] speech recognition short story writer software was used to create portions of [...] X-rays reviewed in the office today on [facility] PACS: AP pelvis and right frog lateral [...] of their questions today in the office. [facility] speech recognition short story writer software was used to create portions of [...] eval and treat LBP 2024 025 elvia [facility], [address], [place], [address], 5 11:00:00 physical therapist referral - DX: RTHR EVAL AND TX: RIGHT THR PROTOCOL AND STRETCHES 2-3 times/wee k 4-6 weeks 2023 024 [email or web address] Not available 4 08:27:02 Procedures None recorded. Surgeries None recorded. Imaging XR, hip + pelvis, unilatera l, 2 or 3 view - RM 313 RTHR SJK 2023 024 scar [facility], [address], [place], [address], 4 14:47:45 XR, hip + pelvis, unilatera l, 2 or 3 view - 2v right THR global first po ROOM 313 2023 024 alison [facility], [address], [address], [place], [address], 4 11:28:45 Medication Orders prednison e 10 mg tablets in a dose pack 2024 025 [id number], [address] [place] [address], [address], 5 10:50:51 Patient TargetsNo targets recorded. Patient InstructionsNo instructions recorded. Reason for Referral Physical Therapist Referral for Hip joint prosthesis present DX: RTHR EVAL AND TX: RIGHT THR PROTOCOL AND STRETCHES2-3 times/week4-6 weeks Referring Physician: Oscar Deng, Orthopedic Surgery, [id number] Encounter Date: 03/23/2024 Physical Therapist Referral for [...] a4ajBk vP9nXo QUaueC m3YtLR FvZlgJ JJ8mAn HZtai3 5s0562 AC0Kqa 3qAWKW vKiQtr MwF INTERFACE [facility] [address], [place], [address], 03/23/2024 09:31:23 03/23/20 24 03/23/2024 XR, hip + pelvi s, unila teral , 2 or 3 view http:/ [email or web address] ?Encry pted=s hAaTro YD8dLq bEUv6g %2BXZw aYqtaq 0bqfl% 2Fg9IQ a4ajBk vP9nXo QUaueC m3YtLR FvZlgJ JJ8mAn HZtai3 1l0790 AC0Kqa 3qAWKW vKiQtr MwF INTERFACE [facility] [address], [place], [address], 03/23/2024 09:31:25 04/03/20 24 04/03/2024 XR, hip + pelvi s, unila teral , 2 or 3 view http:/ [email or web address] ?Encry pted=s hAaTro YD8dLq bEUv6g %2BXZw aYqtaq 0bqfl% 2Fg9IQ a4ajBk vP9nXo QUaueC m3YtLR FvZlgJ JJ8mAn HZtai3 8y5858 AC0Kqa H%2BGU aSgKiQ trMwF INTERFACE [facility] [address] [facility] [address], [place], [address], 04/03/2024 14:32:29 04/03/20 24 04/03/2024 XR, hip + pelvi s, unila teral , 2 or 3 view http:/ [email or web address] ?Encry pted=s hAaTro YD8dLq bEUv6g %2BXZw aYqtaq 0bqfl% 2Fg9IQ a4ajBk vP9nXo QUaueC m3YtLR FvZlgJ JJ8mAn HZtai3 6z8695 AC0Kqa H%2BGU aSgKiQ trMwF INTERFACE [facility] [address], [address], 04/03/2024 14:32:31 Result Notes Documentation Provider Name and Address Organization Details Recorded Time Xr, Hip + Pelvis, Unilateral, 2 Or 3 View : [email or web address] Encrypted=xmDwKllLT9aXmrI Uv6g%7GYWomCslvw9ppro%2Fg 1GBg2bwYtrY9eDzDRuaxMv4Ja QRQvJocUIP1sOsIKisx76a797 9JT0Pqw2bWQHPeGvXljNpW Not Available [facility] 03/23/2024 09:31: 24 Xr, Hip + Pelvis, Unilateral, 2 Or 3 View : [email or web address] Encrypted=aqLnUauHR7jEumB Uv6g%6KJYeoHieax9kncb%2Fg 7LJs6jxMwqW0iSzDZsdtRf7Wc IUDcTmxYSC4zCrPDxgh83d703 5QZ8Vyl7qKNXRqWxYijHsB Not Available [facility] 03/23/2024 09:31: 26 Xr, Hip + Pelvis, Unilateral, 2 Or 3 View : [email or web address] Encrypted=xqZdUgfET5zThjH Uv6g%0SROawPedzy7moql%2Fg 1JZu6csWvaU0qTqIYhmzXs7Se INGrHyaBNY5gHgXQtxv50c589 4YF1VplK%2BGUaSgKiQtrMwF Not Available [facility] 04/03/2024 14:3 2:30 Xr, Hip + Pelvis, Unilateral, 2 Or 3 View : [email or web address] Encrypted=ouVkHtvZB1uCpoM Uv6g%8ADZrdFuqtn5taln%2Fg 0QVd0hgBbpY6pSnVPyqmYj3Ak HLFvLznQAN8nBwEMyqm89e561 3JU0OwzQ%2BGUaSgKiQtrMwF Not Available [facility] 04/03/2024 14:3 2:32 Medical Equipment None Reported. Allergies Allergen ID Allergen Name Allergen Category Reaction Reaction Severity Criticality Documentation Date Start Date Code Code System Note Provider Name and Address Organization Details Recorded Time [id number] Dilantin medicatio n Not available Not available Not available 06/27/2024 0 RxNorm Tanika patterson [place] - [facility] 10:49:12 075436 Tegretol medicatio n Not available Not available Not available 06/27/2024 9 RxNorm PAPITO José [facility] 10:49:17 Medications Name Sig Start Date Stop [...] in a dose pack as directed 6 QTj0jffk, 5 FJb5rjpt, 4 PO x2days, 3 MRn2tfse, 2 TKy2rvjz, 1 AOc8tswa 06/27 completed Not Available Not Available Not [...] Updated DateTime 06/09/2024 160.02 cm 27.5 kg/m2 13962.82 g AFRICA RICHARDS MA [facility] 06/09/2024 10:26:23 Date Recorded Body height Body mass index (BMI) Body weight Provider Name and Address Organization Details Last Updated DateTime 06/27/2024 160.02 cm 27.5 kg/m2 70274.82 g Tanika Morton [facility] 06/27/2024 10:48:47 Date Recorded Body height Body mass index (BMI) Body weight Provider Name and Address Organization Details Last Updated DateTime 04/03/2024 160.02 cm 27.5 kg/m2 58149.82 g Treva Moore [facility] 04/03/2024 14:20:13 Social History None recorded. Functional Status None recorded. Mental Status None recorded. Family History Nothing Reported. Medical History No medical history recorded. Gynecological HistoryNo gynecological history recorded. Obstetrics History GPAL:G 0 P 0 0 0 0 Past Encounters Encounter ID Performer Location Encounter Start Date Encounter Closed Date Diagnosis/Indication Diagnosis SNOMED-CT Code Diagnosis ICD10 Code Diagnosis IMO Codes Diagnosis Note [id number] HO Hughes [address] [place] [address] 03/23/2024 09:12:17 04/17/2024 16:20:36 Aftercare 824887416 Z51.89 Hip joint prosthesis present 954445159 Z96.955 [id number] HO Stevens [address] [place] [address] 04/03/2024 13:56:44 04/26/2024 13:27:23 History of repair of hip joint 736639906 Z96.714 [id number] HO Rendon [facility] [address] [place] [address] 06/09/2024 09:46:03 06/26/2024 11:00:00 Acute back pain with sciatica 460186327 M54.41 [id number] MD KAYLENE Haider [facility] [address] [place] [address] 06/27/2024 10:38:23 07/06/2024 15:52:10 History of total replacement of right hip joint 9491637592 87123 Z96.641 [id number] Health Concerns Section Related Observation LastModified by Organization Detai ls LastModified Time None Recorded Concern Status LastModified by Organization Details LastModified Time None Recorded Advance Directives Directive None Recorded Payers Insurance Date Sequence Insurance Name Policy Number Policy Mendez Covered Member ID Mendez Member ID Guarantor Name 07/06/2024 2 [place] [id number] Annabelle Harris [id number] Annabelle Mainsimon 06/27/2024 1 [place] [employer] Annabelle Pantoja Steven [id number] Annabelle Steven Notes Date Note Type [...] X-rays ordered, obtained and reviewed today at [facility], two views, reveal maintained alignment of the [...] are any complications. Pau Posada PA-C [address] [facility] [address], [place], [address], [facility] - [facility] 04/03/2024 14:44:04 OBGyn Episode No OBEpisode recorded.
--- OUTSIDE RECORDS SUMMARY | 2025-05-18 19:46 | XMS_ITS | Data Portability ---
Author Organization [place] - [facility], Allergy Address [address] [address] Care Team Providers Care Internal Control Specialist Name Role Phone MALISSAANITA AVALOS Primary Care [...] She does not want to return to [place] for her procedure we will try to expedite things through the [place] end[facility] team. roberta Not available 06/13/2024 12:06:37 06/26/2024 06/26/2024 Patient underwen t fine-needle aspiration for the incidental left parotid mass. This was consistent with Warthin's tumor. 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 We reviewed that these are benign growths but the only way to know for sure would be to have surgical pathology and have the lesion removed. There is a second lesion on the other side which I cannot palpate which is typically seen with Warthin's tumors. Her xkkvnrwe-lm-bev has been treated at [facility] in [place] and the patient would like referral to [...] recorded. Referral physical therapist [facility]24 [facility] [place], [address] [place] [address], [place], [address], 5 14:05:08 head and neck referral 2024 025 [email or web address] Nikko Houser MD, [address] [place], [address], 5 16:18:51 Procedures fine needle aspiration , ultrasound guided, neck mass (PROC) 2024 025 [email or web address] David Treviño MD, [address] [place], [address], 5 16:17:23 Surgeries None recorded. Imaging None recorded. Medication Orders None recorded. Patient TargetsNo targets recorded. Patient InstructionsNo instructions recorded. 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 BARCODE Not Available 2024 10:22:43 04/10/20 25 02/21/2025 CT, neck, soft tissu e, w/ contr ast No observ ation record ed. [email or web address] Not Available 09/2024 12:50:33 Result Notes None recorded. 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 Judah patterson [place] - [facility] 11:49:28 Inflamed seborrheic keratosis 689100689 Active 2017 Judah patterson [place] - [facility] 11:49:28 Primary osteoarthri tis of ankle 125944618 Active 2018 Judah patterson [place] - [facility] 11:49:28 Dysfunction of posterior tibial tendon of right foot 8299118727652 105 Active 2018 Judah patterson [place] - [facility] 11:49:28 Osteoarthri tis of right knee joint 9903989934877 00 Active 2019 Judah patterson [place] - [facility] 11:49:28 Nodule of lung 295378726 Active 2020 Judah patterson [place] - [facility] 11:49:28 Multiple premature ventricular complexes 302281050 Active 2020 Judah patterson [place] - [facility] 11:49:28 Mitral valve regurgitati on 07772968 Active 2020 Judah patterson [place] - [facility] 11:49:28 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 Judah patterson [place] - [facility] 11:49:28 Vaginal dryness 63139213 Active 2022 Judah patterson [place] - [facility] 11:49:28 History of deep vein thrombosis 152366137 Active 2023 Judah patterson [place] - [facility] 11:49:28 Chronic deep venous thrombosis of right lower extremity 5623015066067 02 Active 2023 Judah patterson [place] - [facility] 11:49:28 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 2024 BETHEL CHASE MD [address] [place] [address], [address] [facility] [place] - [facility] 12:03:54 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 BETHEL CHASE MD 100 [facility], [address], [place], [address], [facility] - [facility] 11:01:59 Sensorineur al hearing loss of bilateral ears 485810113 Active 2024 NELSON MALIKRE, AUD 100 [facility] [address], [place], [address], [facility] - [facility] 15:01:53 Dizziness and giddiness 314931052 Active 2024 NELSON MALIKRE, AUD 100 [facility], [address], [place], [address], [facility] - [facility] 15:02:01 Benign paroxysmal positional vertigo 172397643 Active 2024 Moonjoseph patterson [place] - [facility] 15:51:04 Bilateral tinnitus 4869129979845 Active 2024 Moon patterson [place] - [facility] 16:44:08 Problem Notes None recorded. Procedures Surgical History Date Name Laterality Status Provider Name and Address Organization Details Recorded Time Comp Audio with Tymps - 75218 & 96734 completed NELSON ARAUZ, [facility] 100 [facility],[address], [address], [facility] - [facility] 06/30/2024 15:02:07 total replacement of hip completed Judah Small [facility] 06/13/2024 11:57:10 Imaging Results None recorded. Procedure Notes None recorded. Medical Equipment None Reported. Allergies Allergen ID Allergen Name Allergen Category Reaction Reaction Severity Criticality Documentation Date Start Date Code Code System Note Provider Name and Address Organization Details Recorded Time 453967 carbamaze pine medicatio n Not available Not available Not available 06/13/20242005 RxNorm Judah patterson [place] - [facility] 11:49:13 533382 phenytoin sodium medicatio n Not available Not available Not available 06/13/20242005 13736 RxNorm Judah patterson [place] - [facility] 11:49:13 Medications Name Sig Start Date Stop [...] Updated DateTime 06/26/2024 170.18 cm 23 kg/m2 24077.08 g Judah Cortez [facility] 06/26/2024 10:28:12 Date Recorded Body height Body mass index (BMI) Body weight Provider Name and Address Organization Details Last Updated DateTime 06/30/2024 170.18 cm 22.9 kg/m2 59851.[address] [facility] 06/30/2024 15:19:15 Social History None recorded. Functional Status None recorded. Mental Status None recorded. Family History Nothing Reported. Medical History Condition Response Anemia Y Immune System Disorder Y Bleeding Disorder Arthritis Y Hypertension Y Gynecological HistoryNo gynecological history recorded. Obstetrics History GPAL:G 0 P 0 0 0 0 Immunizations Vaccine Type Date Status Note Provider Nam e and Address Organization Details Recorded Time Influenza, high-dose, quadrivalent, PF 8 completed Judah patterson [place] [facility] 06/13/2024 11:49:50 Influenza, high-dose, quadrivalent, PF 5 completed Judah patterson [place] [facility] 06/13/2024 11:49:50 Influenza, adjuvanted, quadrivalent, PF 1 completed Judah patterson [place] [facility] 06/13/2024 11:49:50 COVID-19, mRNA, LNP-S, PF, 30 mcg/0.3 mL dose 2 completed Judah Small null, [place] - [facility] 06/13/2024 11:49:50 COVID-19, mRNA, LNP-S, PF, 30 mcg/0.3 mL dose 1 completed Judah Small null, [place] - [facility] 06/13/2024 11:49:50 COVID-19, mRNA, LNP-S, PF, 30 mcg/0.3 mL dose 1 completed Judah Small null, [place] - [facility] 06/13/2024 11:49:50 pneumococcal polysaccharide PPV23 2 completed Judah Small null, [place] - [facility] 06/13/2024 11:49:50 Tdap 3 completed Judah Small null[place] [facility] 06/13/2024 11:49:50 Pneumococcal conjugate PCV 13 7 completed Judah Small null[place] [facility] 06/13/2024 11:49:50 Influenza, high-dose, trivalent, PF 2 completed Judah Small null[place] [facility] 06/13/2024 11:49:50 Influenza, high-dose, trivalent, PF 6 completed Judah Small [place] [facility] 06/13/2024 11:49:50 Influenza, high-dose, trivalent, PF 7 completed Judah Small null[place] [facility] 06/13/2024 11:49:50 Influenza, split virus, trivalent, preservative 9 completed Judah Small null, [place] - [facility] 06/13/2024 11:49:50 Influenza, split virus, trivalent, preservative 3 completed Judah Small [place] [facility] 06/13/2024 11:49:50 Influenza, split virus, trivalent, preservative 6 completed Judah Small null[place] [facility] 06/13/2024 11:49:50 Influenza, split virus, trivalent, preservative 5 completed Judah Geovanny patterson[place] - [facility] 06/13/2024 11:49:50 Influenza, split virus, trivalent, preservative 2 completed Judah Geovanny patterson[place] [facility] 06/13/2024 11:49:50 Influenza, split virus, trivalent, preservative 4 completed Judahyoan patterson, [place] - [facility] 06/13/2024 11:49:50 Novel [id number], preservative-free 0 completed Judah patterson, [place] - [facility] 06/13/2024 11:49:50 Past Encounters Encounter ID Performer Location Encounter Start Date Encounter Closed Date Diagnosis/Indication Diagnosis SNOMED-CT Code Diagnosis ICD10 Code Diagnosis IMO Codes Diagnosis Note [id number] BETHEL VEGA MD [facility] [address] [address] 06/13/2024 11:15:07 06/13/2024 12:11:28 Neoplasm of uncertain behavior of parotid gland 09027456 D37.030 Antiphosph olipid syndrome 49578390 D68.61 [id number] BETHEL VEGA MD [facility] [address] [address] 06/26/2024 10:08:04 06/26/2024 11:05:43 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 800773832 D37.039 [id number] MOON OSWALD PA-C [facility] [address] [address] 06/30/2024 14:46:55 06/30/2024 15:57:11 Benign paroxysmal positional vertigo 793524883 H81.10 Bilateral tinnitus 53371 11347 102 H93.13 Sensorineu ral hearing loss of bilateral ears 463774728 H90.3 [id number] MARGARET CARDOSO [facility] [address] [place] [address] 06/30/2024 15:01:40 07/03/2024 07:29:06 Sensorineural hearing loss of bilateral ears 904109490 H90.3 Dizziness and giddiness 590604656 R42 Right Ear:Normal hearing through 500 Hz [...] Name 09/27/2024 2 [place] [id number] Annabelle Harris [id number] Annabelle Harris 09/27/2024 1 [place] [employer] Annabelle Harris [id number] Annabelle Harris Notes Date Note Type [...] and she is planning to go to [place] in a few weeks BETHEL FLOR MD [address] [place] [address], [place], [address], [facility] 06/13/2024 13:12:22 06/26/2024 text/html Patient underwent fine-needle aspiration for the incidental left parotid mass. This was consistent with Warthin's tumor. She is anxious as her lydbgbkc-vf-otb has adenoid cystic carcinoma. BETHEL FLOR MD [address], [address], [place] - [facility] 06/26/2024 11:04:06 06/30/2024 text/html ROS as [...] her hair and had sensation of spinning. [place] like she was being pushed over. She [...] patterson [place] - [facility] 06/30/2024 16:44:38 OBGyn Episode No OBEpisode recorded.
--- OUTSIDE RECORDS SUMMARY | 2025-05-18 19:47 | XMS_ITS | Clinical Summary ---
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 Comparison: Neck CTA 03/02/24 ([facility], [place], [place]) Technique: Helical volumetric imaging of the neck was performed during theuneventful intravenous administration of 90 cc Isovue-370. DLP: 276.55 mGy/cm GE [employer] [place] Iterative reconstruction technique Findings: Redemonstrated is a 16 x 13 mm circumscribed round hyperattenuating masswithin the superficial left parotid lobe (image 40 series 3). Minimal tinycystic areas are seen within the lesion. There has been no significantchange in the size or appearance of the lesion since the previous study. The right parotid and bilateral submandibular glands are unremarkable. Nodeveloping cervical lymphadenopathy is seen. The nasopharyngeal and oropharyngeal mucosal landmarks are intact. Theairway is widely patent. The epiglottis and aryepiglottic folds arenormal. The vocal cords are symmetric and normal in appearance.Preepiglottic and paraglottic fat planes are preserved. The parapharyngealfat is intact. The bilateral carotid arteries and internal jugular veins are patent.There is mild atherosclerotic calcification at the level of the carotidbulbs, unchanged. The orbital and included portions of the intracranial contents areunremarkable. A subcentimeter circumscribed round hypoattenuating noduleis again seen in the right thyroid lobe, requiring no specificfollow-up. The bones are demineralized. Bilateral temporomandibular arthritic changesare seen. Cervical spondylosis and degenerative disc disease is noted. Nosuspicious osseous destructive lesion is noted. IMPRESSION: Impression: 1. Stable known left parotid Warthin's tumor since 03/02/24. 2. No developing [place] ([id number]) -------- FINAL REPORT -------- Dictated By: Yoselyn Han Dictated Date: 02/27/2025 10:26 ET Assigned Physician: Yoselyn Han Reviewed and Electronically Signed By: Yoselyn Han Signed Date: 02/27/2025 10:34 ET Workstation ID: [id number] Transcribed By: Self Edit Transcribed Date: 02/27/2025 10:26 ET Italo Romero MD IMG CT PROCEDURES Final Res ult * (ABNORMAL) Prothrombin time with INR (02/21/2025 8:46 AM EDT) Protime 50.1(H) 10.6 - 13.9 sec LAB COAGULATION METHOD 02/21/2025 9:32 AM EDT [facility] INR 4.1 LAB COAGULATION METHOD 02/21/2025 9:32 AM EDT [facility] Blood Venous blood specimen / Unknown Venipuncture / Unknown 02/21/2025 8:46 AM EDT 02/21/2025 9:10 AM EDT Italo Romero MD LAB BLOOD ORDERABLES Final Result [facility] [address] [place] [address], * Basic metabolic panel (02/21/2025 8:46 AM EDT) Sodium 142 133 - 145 mmol/L LAB CHEMISTRY METHOD 02/21/2025 9:49 AM [facility] Potassium 4.8 3.5 - 5.5 mmol/L LAB CHEMISTRY METHOD 02/21/2025 9:49 AM [facility] Chloride 107 96 - 110 mmol/L LAB CHEMISTRY METHOD 02/21/2025 9:49 AM [facility] CO2 30 21 - 32 mmol/L LAB CHEMISTRY METHOD 02/21/2025 9:49 AM [facility] Anion Gap 5 3 - 11 LAB CHEMISTRY METHOD 02/21/2025 9:49 AM [facility] Glucose 81 70 - 100 mg/dL LAB CHEMISTRY METHOD 02/21/2025 9:49 AM [facility] BUN 23 5 - 25 mg/dL LAB CHEMISTRY METHOD 02/21/2025 9:49 AM [facility] Creatinine 0.66 0.50 - 1.10 mg/dL LAB CHEMISTRY METHOD 02/21/2025 9:49 AM [facility] eGFR 93 >=60 mL/min/1. 73m2 LAB CHEMISTRY METHOD 02/21/2025 9:49 AM [facility] Comment:Calculation based on the Chronic Kidney Disease Epidemiology Collaboration (CKD-EPI) equation refit without adjustment for race. BUN/Creatinine Ratio 34.8 LAB CHEMISTRY METHOD 02/21/2025 9:49 AM [facility] Calcium 9.7 8.5 - 10.5 mg/dL LAB CHEMISTRY METHOD 02/21/2025 9:49 AM [facility] Blood Venous blood specimen / Unknown Venipuncture / Unknown 02/21/2025 8:46 AM EDT 02/21/2025 9:08 AM EDT us Italo Romero MD LAB BLOOD ORDERABLES Final Result [facility] ([facility]) [facility] [address] [place] [address], * BD Bone Density DXA Axial Skeleton (11/17/2024 11:12 AM EDT) Anatomical Region Laterality Modality Wrist, Hip, L-spine Bone Densito metry 11/17/2024 11:5 1 AM EDT Impressions 11/17/2024 11:53 AM EDT Osteoporosis Reference Information: The T-score is the number of standard deviations above or below the standard which is normal for young adults at their peak bone mineral density. The World Health Organization (WHO) interprets the T-scores as follows: At or above -1 SD Normal bone density Between -1 and -2.5 SD Osteopenia At or below -2.5 SD Osteoporosis -------- FINAL REPORT -------- Dictated By: Rogerio Braga Dictated Date: 11/17/2024 11:51 ET Assigned Physician: Rogerio Braga Reviewed and Electronically Signed By: Rogerio Braga Signed Date: 11/17/2024 11:53 ET Workstation ID: [id number] Transcribed By: Self Edit Transcribed Date: 11/17/2024 11:51 ET Narrative 11/17/2024 11:53 AM EDT STUDY: DUAL ENERGY X-RAY ABSORPTIOMETRY / DXA REASON FOR EXAM: Female, 74 years old post-menopausal osteoporosis prevention Osteoporosis follow-up exam TECHNIQUE: Bone Mineral Density (BMD) measurements of the lumbar spine and left hip were obtained using [employer] Discovery W (S/N [id number]). COMPARISON: April 22, 2020 FINDINGS: L1-L4 BMD: 0.722 g/cm2 L1-L4 T score: -3.0. This corresponds to osteoporosis. This represents a -7.4* % decrease in bone density compared with prior exam from April 22, 2020. Left femoral neck BMD: 0.514 g/cm2 Left femoral neck T score: -3.0. This corresponds to osteoporosis. Left total hip BMD: 0.675 g/cm2 Left total hip T score: -2.2. This corresponds to osteopenia. This represents a 2.6 % increase in bone density compared with prior exam from April 22, 2020. * - Indicates a statistically significant change. Procedure Note Rogerio Braga MD - 11/17/2024 STUDY: DUAL ENERGY X-RAY ABSORPTIOMETRY / DXA REASON FOR EXAM: Female, 74 years old post-menopausal osteoporosisprevention Osteoporosis follow-up exam TECHNIQUE: Bone Mineral Density (BMD) measurements of the lumbar spineand left hip were obtained using [employer] W (S/N [id number]). COMPARISON: April 22, 2020 FINDINGS: L1-L4 BMD: 0.722 g/cm2 L1-L4 T score: -3.0. This corresponds to osteoporosis. This represents a -7.4* % decrease in bone density compared with priorexam from April 22, 2020. Left femoral neck BMD: 0.514 g/cm2 Left femoral neck T score: -3.0. This corresponds to osteoporosis. Left total hip BMD: 0.675 g/cm2 Left total hip T score: -2.2. This corresponds to osteopenia. This represents a 2.6 % increase in bone density compared with prior examfrom April 22, 2020. * - Indicates a statistically significant change. IMPRESSION: Osteoporosis Reference Information: The T-score is the number of standard deviations above or below thestandard which is normal for young adults at their peak bone mineraldensity. The World Health Organization (WHO) interprets the T-scores asfollows: At or above -1 SD Normal bone density Between -1 and -2.5 SD Osteopenia At or below -2.5 SD Osteoporosis -------- FINAL REPORT -------- Dictated By: Rogerio Braga Dictated Date: 11/17/2024 11:51 ET Assigned Physician: Rogerio Braga Reviewed and Electronically Signed By: Rogerio Braga Signed Date: 11/17/2024 11:53 ET Workstation ID: [id number] Transcribed By: Self Edit Transcribed Date: 11/17/2024 11:51 ET us Italo Romero MD IMG DXA PROCEDURES Final Re sult * MG Mammo Digital Screening w [place] bilat (09/27/2024 1:11 PM EDT) Anatomical Region Laterality Modality Breast Bilateral Mammography 09/28/2024 8:21 AM EDT Impressions 09/28/2024 8:35 AM EDT 1. No mammographic evidence of malignancy 2. Heterogeneous breast parenchyma BI-RADS CATEGORY: 2 - BENIGN RECOMMENDATION: Screening bilateral mammogram is recommended in 1 year. Mammo Location: [facility], [address] [place] [address], [id number], . -------- FINAL REPORT -------- Dictated By: Ilene Whatley Dictated Date: 09/28/2024 08:21 ET Assigned Physician: Ilene Whatley Reviewed and Electronically Signed By: Ilene Whatley Signed Date: 09/28/2024 08:35 ET Workstation ID: [id number] Transcribed By: Self Edit Transcribed Date: 09/28/2024 08:21 ET Narrative 09/28/2024 8:35 AM EDT A BILATERAL DIGITAL 3D SCREENING MAMMOGRAPHY HISTORY: Routine screening. No family history of breast cancer. COMPARISON: Multiple priors dating back to 04/03/2021 Technique: Bilateral full field digital mammography (3D) was performed using standard CC and MLO projections , bilateral exaggerated CC views CAD was used to evaluate this mammogram. FINDINGS: Right: No suspicious masses, groups of microcalcification or areas of architectural distortion identified. Stable typically benign parenchymal asymmetries. Left: No suspicious masses, groups of microcalcification or areas of architectural distortion identified. Stable typically benign parenchymal asymmetries. BREAST DENSITY: C - The breasts are heterogeneously dense which may obscure small masses. Procedure Note Ilene Whatley MD - 09/28/2024 A BILATERAL DIGITAL 3D SCREENING MAMMOGRAPHY HISTORY: Routine screening. No family history of breast cancer. COMPARISON: Multiple priors dating back to 04/03/2021 Technique: Bilateral full field digital mammography (3D) was performedusing standard CC and MLO projections , bilateral exaggerated CC views CAD was used to evaluate this mammogram. FINDINGS: Right: No suspicious masses, groups of microcalcification or areas ofarchitectural distortion identified. Stable typically benign parenchymalasymmetries. Left: No suspicious masses, groups of microcalcification or areas ofarchitectural distortion identified. Stable typically benign parenchymalasymmetries. BREAST DENSITY: C - The breasts are heterogeneously dense which mayobscure small masses. IMPRESSION: 1. No mammographic evidence of malignancy 2. Heterogeneous breast parenchyma BI-RADS CATEGORY: 2 - BENIGN RECOMMENDATION: Screening bilateral mammogram is recommended in 1 year. Mammo Location: [facility], [address] [place] [address], [id number], . -------- FINAL REPORT -------- Dictated By: Ilene Whatley Dictated Date: 09/28/2024 08:21 ET Assigned Physician: Ilene Whatley Reviewed and Electronically Signed By: Ilene Whatley Signed Date: 09/28/2024 08:35 ET Workstation ID: [id number] Transcribed By: Self Edit Transcribed Date: 09/28/2024 08:21 ET us Italo Romero MD IMG BI PROCEDURES Final Res ult * Lipid panel (01/14/2023) LDL/HDL Ratio 2 Triglycerides 111 mg/dL Cholesterol 190 mg/dL HDL 80 mg/dL LDL Cholesterol 88 mg/dL Blood Venous blood specimen / Unknown Historical Provider LAB BLOOD ORDERABLES Rupali l Result * Stool Based Tests (FOBT/FIT) (12/23/2020) Pathologist [facility] Colorectal Cancer Screening: Stool Based Tests negative Historical Provider HEALTH MAINTENANCE Final Result * Pap Smear (09/11/2014) Pathologist [facility] Pap smear negative Historical Provider HEALTH MAINTENANCE Final Result from Last 3 Months or Most Recently Relevant to Health Maintenance Insurance MEDICARE [facility] Advance Directives Documents on File Type Date 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 Do not modify or discontinue any currently active code status orders. Care Teams Staff Nurse Midwife Relationship Specialty Start Date End Date Italo Romero MD [address] [place] [address] PCP - General Internal Medicine 11/24/21
--- OUTSIDE RECORDS SUMMARY | 2025-05-18 19:47 | XMS_ITS | Encounter Summary ---
Author Organization [facility] Address [address] [place] [address] Care Team Providers Care Geophysical Party Chief Name Role Phone Italo Romero MD Primary Care Provider [phone] Encounter Details Date Type Department Care Team (Late st Contact Info) Description 04/02/2025 Results Follow-Up [facility] [address] [place] [address] Belgica Thrasher NP [address] [place] [address] [address] [place] [address] Social History Tobacco Use Types Packs/Day Years Used Date Smoking Tobacco: Some Days Cigarettes Smokeless Tobacco: Current Alcohol Use Standard Drinks/Week Comments Yes 0 (1 standard drink = 0.6 oz pur e alcohol) wine occ Comments No Sex and Gender Information Value [...] 05/29/2025 10:15 AM EST Clinical Support Coumadin [address] [address] 09/10/2025 1:20 PM EDT Appointment Radiology Department - [address] [address] documented as of this encounter Visit Diagnoses Not on filedocumented in this encounter Care Teams Geophysical Party Chief Relationship Specialty Start Date End Date Italo Romero MD [address] [place] [address] PCP - General Internal Medicine 11/24/21 documented as of this encounter
--- OUTSIDE RECORDS SUMMARY | 2025-05-18 19:47 | XMS_ITS | Encounter Summary ---
Author Organization [facility] Address [address] [place] [address] Care Team Providers Care Minute Clerk Name Role Phone Italo Romero MD Primary Care Provider [phone] Encounter Details Date Type Department Care Team (Late Contact Info) Description 04/27/2024 Nurse Triage Adult Medicine [address] [phone] Italo Romero MD [address] [place] [address] Social History Tobacco Use Types Packs/Day Years [...] Department Care Team (Late Contact Info) Description 05/29/2025 10:15 AM EST Clinical Support Coumadin [facility] - [address] [phone] 09/10/2025 1:20 PM EDT Appointment Radiology Department - [address] [address] documented as of this encounter Visit Diagnoses Not on filedocumented in this encounter Care Teams Minute Clerk Relationship Specialty Start Date End Date Italo Romero MD [address] [place] [address] PCP - General Internal Medicine 11/24/21 documented as of this encounter
== END 2025-05-18 15:52 | disposition home or self-care (01) ==
LOC: HO.RHES 14:32
PROVIDERS: PCP Internal Medicine; Visit Provider Student in an Organized Health Care Education/Training Program
DX: M81.0 Age-related osteoporosis without current pathological fracture (principal)
CPT/HCPCS: 99215; G2211

== ENCOUNTER → 2025-05-18 14:31 | Outpatient (BNVA) | payer MEDICARE, BC, SELFPAY | PROVIDERS: PCP Internal Medicine; Visit Provider Student in an Organized Health Care Education/Training Program | DX: M81.0 Age-related osteoporosis without current pathological fracture (principal); Z79.01 Long term (current) use of anticoagulants; Z79.899 Other long term (current) drug therapy | CPT/HCPCS: 99212 ==